=== PATIENT | male | born 1980 | race Two or more races ===

== ENCOUNTER 2018-12-24 15:50 | Inpatient (IN) | payer SELFPAY ==
[~2018-12-24] VITALS: Ht 165.1 cm; Wt 65.8 kg
--- NOTE | 2018-12-24 17:04 | PHYS DOC ---
Past Medical History Past Medical History: TB (JIA DALTON APRN) Past Surgical History: No Surgical History (JIA DALTON APRN) Alcohol Use: Heavy Drug Use: None (JIA DALTON APRN) Adult General Chief Complaint Chief Complaint: COUGH HPI HPI On pt's arrival to Rm 19 from triage he was placed on TB precautions. 38-year-old male presents to ER via POV with his brother for concerns of nonproductive cough and weight loss. Pt speaks minimal Sammarinese so his brother is translating- he speaks mainly [place]ian. Per brother patient had been heavy alcohol drinker however when he started working 1-1/2 months ago he did not have the financial means for alcohol. Patient has been sober for 15 days and his brother has noticed a significant weight loss of approximately 15-20 pounds in the past month. Patient is denying any pain or shortness of air. Patient has had nonproductive cough denying any blood or colored phlegm. Pt's brother reports pt had +TB test when he was in [place] 3[place]4 yrs ago and had done 1 wk of tx but didn't finish the tx. Pt's brother denies any recent travel. (JIA DALTON APRN) Review of Systems Review of Systems Constitutional: Denies fever or chills. Reports generalized fatigue/weakness- pt's brother denies lethargy/confusion/change in MS Eyes: Denies change in visual acuity, redness, or eye pain [] HENT: Denies nasal congestion or sore throat [] Respiratory: Denies shortness of breath. Reports intermittent dry cough- denies bloody/colored phlegm Cardiovascular: Denies CP GI: Denies abdominal pain, nausea, vomiting, bloody stools or diarrhea [] : Denies dysuria or hematuria [] Musculoskeletal: Denies back pain or joint pain [] Integument: Denies rash or skin lesions [] Neurologic: Denies headache, focal weakness or sensory changes [] Endocrine: Denies polyuria or polydipsia [] Pt's brother reports pt had been heavy drinker of beer until 15 days ago- he reports pt had tremors several days after he stopped drinking. He reports since pt stopped drinking he has been laying around sleeping more. He denies lethargy/confusion/falls. He reports pt hasn't been eating/drinking much. He denies pt w/vomiting or diarrhea. He reports pt has had weight loss over past couple of wks. He reports pt had shakes/tremors- had said "seizure like" shakes denying any change in LOC/mental status during episodes. All other systems were reviewed and found to be within normal limits, except as documented in this note. (REFFITT,JIA Carter APRN) Current Medications Current Medications Current Medications Medications (Trade) Dose Ordered Sig/Carlos Start Time Stop Time Status Last Admin Dose Admin Ceftriaxone Sodium (Rocephin) 1 gm 1X ONCE 12/24/18 19:45 12/24/18 19:46 DC 12/24/18 20:17 1 GM Doxycycline Hyclate 100 mg/ Dextrose 100 ml @ 50 mls/hr 1X ONCE 12/24/18 19:45 12/24/18 21:44 DC 12/24/18 20:18 50 MLS/HR Magnesium Sulfate 50 ml @ 25 mls/hr 1X ONCE 12/24/18 19:00 12/24/18 20:59 DC 12/24/18 19:36 25 MLS/HR Sodium Chloride 1,000 ml @ 100 mls/hr 1X ONCE 12/24/18 19:45 12/25/18 05:44 DC 12/24/18 20:17 100 MLS/HR (YUMIKO CHEEK MD) Allergies Allergies Allergies Coded Allergies Type Severity Reaction Last Updated Verified No Known Drug Allergies 12/24/18 No (YUMIKO CHEEK MD) Physical Exam Physical Exam Constitutional: Well developed, well nourished, no acute distress, non-toxic appearance. Fatigued appearance HENT: Normocephalic, atraumatic, mucous membranes pink/dry, no oral exudates, nose normal. [] Eyes: PERRLA, no nystagmus, conjunctiva normal, no discharge. 4 sutures rt eye lid- pt reports from laceration in 2017 and that 2 other sutures had fallen out. No swelling/erythema/ecchymosis at site- lac site is well healed. Sutures were removed by this provider easily w/out bleeding at suture sites. Neck: Normal range of motion, no tenderness/nuchal rigidity, supple, no stridor. [] Cardiovascular: Heart rate regular rhythm, no murmur [] Lungs & Thorax: Bilateral breath sounds clear to auscultation- resp. equal/nonlabored. No cough during exam Abdomen: Bowel sounds normal, soft, no tenderness, no masses, no pulsatile masses. [] Skin: Warm, dry, no erythema, no rash. [] Back: No tenderness, no CVA tenderness. [] Extremities: No tenderness, no cyanosis, no clubbing, ROM intact, no edema. [] Neurologic: Alert and oriented X 3, normal motor function, normal sensory function, no focal deficits noted. [] Psychologic: Affect normal, judgement normal, mood normal. [] (REFFITT,JIA Carter APRN) Current Patient Data Vital Signs Vital Signs Date Time Temp Pulse Resp B/P (MAP) Pulse Ox O2 Delivery O2 Flow Rate FiO2 12/24/18 19:39 86 132/87 (102) 99 Room Air 12/24/18 16:15 97.4 17 97.4 (YUMIKO CHEEK MD) Lab Values Laboratory Tests Test 12/24/18 16:15 12/24/18 18:07 White Blood Count 7.0 x10^3/uL (4.0-11.0) Red Blood Count 4.16 x10^6/uL (4.30-5.70) L Hemoglobin 12.9 g/dL (13.0-17.5) L Hematocrit 37.0 % (39.0-53.0) L Mean Corpuscular Volume 89 fL (79-100) Mean Corpuscular Hemoglobin 31 pg (25-35) Mean Corpuscular Hemoglobin Concent 35 g/dL (31-37) Red Cell Distribution Width 18.5 % (11.5-14.5) H Platelet Count 317 x10^3/uL (140-400) Neutrophils (%) (Auto) 84 % (31-73) H Lymphocytes (%) (Auto) 6 % (24-48) L Monocytes (%) (Auto) 9 % (0-9) Eosinophils (%) (Auto) 0 % (0-3) Basophils (%) (Auto) 1 % (0-3) Neutrophils # (Auto) 5.9 x10^3uL (1.8-7.7) Lymphocytes # (Auto) 0.4 x10^3/uL (1.0-4.8) L Monocytes # (Auto) 0.6 x10^3/uL (0.0-1.1) Eosinophils # (Auto) 0.0 x10^3/uL (0.0-0.7) Basophils # (Auto) 0.0 x10^3/uL (0.0-0.2) Sodium Level 124 mmol/L (136-145) L Potassium Level 3.5 mmol/L (3.5-5.1) Chloride Level 91 mmol/L (98-107) L Carbon Dioxide Level 23 mmol/L (21-32) Anion Gap 10 (6-14) Blood Urea Nitrogen 7 mg/dL (8-26) L Creatinine 0.8 mg/dL (0.7-1.3) Estimated GFR (Cockcroft-Gault) 108.8 BUN/Creatinine Ratio 9 (6-20) Glucose Level 111 mg/dL (70-99) H Calcium Level 8.7 mg/dL (8.5-10.1) Magnesium Level 1.4 mg/dL (1.8-2.4) L Total Bilirubin 1.8 mg/dL (0.2-1.0) H Aspartate Amino Transferase (AST) 84 U/L (15-37) H Alanine Aminotransferase (ALT) 51 U/L (16-63) Alkaline Phosphatase 280 U/L (46-116) H Creatine Kinase 26 U/L (39-308) L Creatine Kinase MB (Mass) < 0.5 ng/mL (0.0-3.6) Creatine Kinase MB Relative Index % (0-4) Troponin I Quantitative < 0.017 ng/mL (0.000-0.055) Total Protein 9.5 g/dL (6.4-8.2) H Albumin 2.1 g/dL (3.4-5.0) L Albumin/Globulin Ratio 0.3 (1.0-1.7) L Ethyl Alcohol Level < 10 mg/dL (0-10) Urine Color Yellow Urine Clarity Clear Urine pH 7.0 Urine Specific Sisters 1.010 Urine Protein Negative mg/dL (NEG-TRACE) Urine Glucose (UA) Negative mg/dL (NEG) Urine Ketones (Stick) Negative mg/dL (NEG) Urine Blood Negative (NEG) Urine Nitrite Negative (NEG) Urine Bilirubin Negative (NEG) Urine Urobilinogen Dipstick 1.0 mg/dL (0.2 mg/dL) Urine Leukocyte Esterase Negative (NEG) Urine RBC 0 /HPF (0-2) Urine WBC 1-4 /HPF (0-4) Urine Squamous Epithelial Cells Occ /LPF Urine Bacteria 0 /HPF (0-FEW) Urine Opiates Screen Neg (NEG) Urine Methadone Screen Neg (NEG) Urine Barbiturates Neg (NEG) Urine Phencyclidine Screen Neg (NEG) Urine Amphetamine/Methamphetamine Neg (NEG) Urine Benzodiazepines Screen Neg (NEG) Urine Cocaine Screen Neg (NEG) Urine Cannabinoids Screen Neg (NEG) Urine Ethyl Alcohol Neg (NEG) Laboratory Tests 12/24/18 16:15 Laboratory Tests 12/24/18 16:15 (YUMIKO CHEEK MD) Lab Values Laboratory Tests Test 12/24/18 16:15 12/24/18 18:07 White Blood Count 7.0 x10^3/uL (4.0-11.0) Red Blood Count 4.16 x10^6/uL (4.30-5.70) L Hemoglobin 12.9 g/dL (13.0-17.5) L Hematocrit 37.0 % (39.0-53.0) L Mean Corpuscular Volume 89 fL (79-100) Mean Corpuscular Hemoglobin 31 pg (25-35) Mean Corpuscular Hemoglobin Concent 35 g/dL (31-37) Red Cell Distribution Width 18.5 % (11.5-14.5) H Platelet Count 317 x10^3/uL (140-400) Neutrophils (%) (Auto) 84 % (31-73) H Lymphocytes (%) (Auto) 6 % (24-48) L Monocytes (%) (Auto) 9 % (0-9) Eosinophils (%) (Auto) 0 % (0-3) Basophils (%) (Auto) 1 % (0-3) Neutrophils # (Auto) 5.9 x10^3uL (1.8-7.7) Lymphocytes # (Auto) 0.4 x10^3/uL (1.0-4.8) L Monocytes # (Auto) 0.6 x10^3/uL (0.0-1.1) Eosinophils # (Auto) 0.0 x10^3/uL (0.0-0.7) Basophils # (Auto) 0.0 x10^3/uL (0.0-0.2) Sodium Level 124 mmol/L (136-145) L Potassium Level 3.5 mmol/L (3.5-5.1) Chloride Level 91 mmol/L (98-107) L Carbon Dioxide Level 23 mmol/L (21-32) Anion Gap 10 (6-14) Blood Urea Nitrogen 7 mg/dL (8-26) L Creatinine 0.8 mg/dL (0.7-1.3) Estimated GFR (Cockcroft-Gault) 108.8 BUN/Creatinine Ratio 9 (6-20) Glucose Level 111 mg/dL (70-99) H Calcium Level 8.7 mg/dL (8.5-10.1) Magnesium Level 1.4 mg/dL (1.8-2.4) L Total Bilirubin 1.8 mg/dL (0.2-1.0) H Aspartate Amino Transferase (AST) 84 U/L (15-37) H Alanine Aminotransferase (ALT) 51 U/L (16-63) Alkaline Phosphatase 280 U/L (46-116) H Creatine Kinase 26 U/L (39-308) L Creatine Kinase MB (Mass) < 0.5 ng/mL (0.0-3.6) Creatine Kinase MB Relative Index % (0-4) Troponin I Quantitative < 0.017 ng/mL (0.000-0.055) Total Protein 9.5 g/dL (6.4-8.2) H Albumin 2.1 g/dL (3.4-5.0) L Albumin/Globulin Ratio 0.3 (1.0-1.7) L Ethyl Alcohol Level < 10 mg/dL (0-10) Urine Color Yellow Urine Clarity Clear Urine pH 7.0 Urine Specific Sisters 1.010 Urine Protein Negative mg/dL (NEG-TRACE) Urine Glucose (UA) Negative mg/dL (NEG) Urine Ketones (Stick) Negative mg/dL (NEG) Urine Blood Negative (NEG) Urine Nitrite Negative (NEG) Urine Bilirubin Negative (NEG) Urine Urobilinogen Dipstick 1.0 mg/dL (0.2 mg/dL) Urine Leukocyte Esterase Negative (NEG) Urine RBC 0 /HPF (0-2) Urine WBC 1-4 /HPF (0-4) Urine Squamous Epithelial Cells Occ /LPF Urine Bacteria 0 /HPF (0-FEW) Urine Opiates Screen Neg (NEG) Urine Methadone Screen Neg (NEG) Urine Barbiturates Neg (NEG) Urine Phencyclidine Screen Neg (NEG) Urine Amphetamine/Methamphetamine Neg (NEG) Urine Benzodiazepines Screen Neg (NEG) Urine Cocaine Screen Neg (NEG) Urine Cannabinoids Screen Neg (NEG) Urine Ethyl Alcohol Neg (NEG) Laboratory Tests 12/24/18 16:15 Laboratory Tests 12/24/18 16:15 (JIA DALTON APRN) EKG EKG EKG obtained 12/24/18 at 1729 Interpreted by ER physician Sinus rhythm Nonspec. ST/T abnorm. Rate 87 (JIA DALTON APRN) Radiology/Procedures Radiology/Procedures PROCEDURE: CHEST PA & LATERAL EXAM: Chest, 2 views. HISTORY: Cough. COMPARISON: None. FINDINGS: 2 views the chest are obtained. There is left upper lobe opacity likely due to partially consolidated infiltrate. There are additional more nodular opacities throughout both lungs which may be due to nodular infiltrate. There is no pleural effusion or pneumothorax. The heart is prominent in size. IMPRESSION: 1. Suspected partially consolidated left upper lobe infiltrate with superimposed scattered bilateral nodular infiltrate. The possibility of pulmonary neoplasm is not excluded. Short-term radiographic or CT follow-up is indicated. 2. Prominent cardiac silhouette. Electronically signed by: Elida Nunn MD (12/24/2018 5:56 PM) [facility] DICTATED and SIGNED BY: ELIDA NUNN MD DATE: 12/24/18 1751 (JIA DALTON APRN) Course & Med Decision Making Course & Med Decision Making Pertinent Labs and Imaging studies reviewed. (See chart for details) Translation phone used to communicate with patient as his brother had left. Discussed test results, plans for antibiotics, and admit plan. Patient reports he is feeling better following IV fluids. Patient had one point for magnesium on labs so IV magnesium 2 g had been ordered. Patient is denying any chest pain or shortness of air. Patient has had no cough during discussion of test results and admit plan. Pt's case was discussed with Dr. Cheek- with pt's chest xray report of "Suspected partially consolidated left upper lobe infiltrate with superimposed scattered bilateral nodular infiltrate" will start pt on IV Rocephin and Doxycycline. Pt had been placed on TB precautions at time of arrival to 19 and will remain on during admission until further r/o TB. 1946: Spoke with Dr. Zheng, hospitalist and discussed pt's case/admit plans and TB concerns. Pt was afebrile with NL WBCs without bands on differential- BP stable while in the ER- HR improved from 104 to 90s following IV flds. Therefore pt not meeting sepsis criteria with HR being the 1 criteria he flagged for. Antibiotics were started prior to blood cxs being obtained. (JIA DALTON APRN) Course & Med Decision Making Staff Physician Addendum: I was working in the ER during the course of this patient's visit. I was available for consultation as needed, but I was not directly involved in the care of this patient. (YUMIKO CHEEK MD) Dragon Disclaimer Dragon Disclaimer This electronic medical record was generated, in whole or in part, using a voice recognition dictation system. (JIA DALTON APRN) Departure Departure Impression: Primary Impression: Concern about pulmonary tuberculosis without diagnosis Additional Impressions: Hypomagnesemia Cough Hyponatremia Disposition: ADMITTED INPATIENT (Dr. Zheng, hospitalist) Condition: STABLE Problem Qualifiers JIA DALTON APRN Dec 24, 2018 17:04 YUMIKO CHEEK MD Dec 30, 2018 07:34
[2018-12-24 17:08] LABS: BASO % 1 % (0-3); EOS % 0 % (0-3); HEMOGLOBIN 12.9 g/dL (13.0-17.5); LYMPH # 0.4 x10^3/uL (1.0-4.8); LYMPH % 6 % (24-48); MEAN CORPUSCULAR HEMOGLOBIN 31 pg (25-35); MEAN CORPUSCULAR HGB CONC 35 g/dL (31-37); MEAN CORPUSCULAR VOLUME 89 fL (79-100); MONO # 0.6 x10^3/uL (0.0-1.1); MONO % 9 % (0-9); NEUT # 5.9 x10^3uL (1.8-7.7); NEUT % 84 % (31-73); PLATELET COUNT 317 x10^3/uL (140-400); RED BLOOD COUNT 4.16 x10^6/uL (4.30-5.70); RED CELL DISTRIBUTION WIDTH 18.5 % (11.5-14.5)
[2018-12-24] MEDS ORDERED: IV NORMAL SALINE 1000ML BAG 1,000 ML IV ONE ×2 (17:15→19:45)
[2018-12-24 17:24] LABS: CALCIUM 8.7 mg/dL (8.5-10.1); CREATININE 0.8 mg/dL (0.7-1.3); GFR 108.8; POTASSIUM 3.5 mmol/L (3.5-5.1)
[2018-12-24 17:37] LABS: ALBUMIN 2.1 g/dL (3.4-5.0); ALBUMIN/GLOBULIN RATIO 0.3 (1.0-1.7); MAGNESIUM 1.4 mg/dL (1.8-2.4); TOTAL BILIRUBIN 1.8 mg/dL (0.2-1.0); TOTAL PROTEIN 9.5 g/dL (6.4-8.2)
[2018-12-24 17:56] LABS: CREATINE KINASE 26 U/L (39-308)
--- NOTE | 2018-12-24 17:59 | RAD ---
EXAM: Chest, 2 views. HISTORY: Cough. COMPARISON: None. FINDINGS: 2 views the chest are obtained. There is left upper lobe opacity likely due to partially consolidated infiltrate. There are additional more nodular opacities throughout both lungs which may be due to nodular infiltrate. There is no pleural effusion or pneumothorax. The heart is prominent in size. IMPRESSION: 1. Suspected partially consolidated left upper lobe infiltrate with superimposed scattered bilateral nodular infiltrate. The possibility of pulmonary neoplasm is not excluded. Short-term radiographic or CT follow-up is indicated. 2. Prominent cardiac silhouette. Electronically signed by: Elida Olmstead MD (12/24/2018 5:56 PM) [facility]
[2018-12-24 18:16] LABS: BILIRUBIN,URINE NEGATIVE (NEG); CLARITY,URINE CLEAR; COLOR,URINE YELLOW; NITRITE,URINE NEGATIVE (NEG); PROTEIN,URINE NEGATIVE (NEG-TRACE)
[2018-12-24 18:21] LABS: AMPHETAMINE/METHAMPHETAMINE NEG (NEG); BARBITURATES NEG (NEG); BENZODIAZEPINES NEG (NEG); CANNABINOIDS NEG (NEG); COCAINE NEG (NEG); METHADONE NEG (NEG); OPIATES NEG (NEG); PHENCYCLIDINE NEG (NEG)
[2018-12-24 18:28] LABS: BACTERIA,URINE 0 /HPF (0-FEW); RBC,URINE 0 /HPF (0-2); SQUAMOUS EPITHELIAL CELL,UR OCC /LPF
[2018-12-24] MEDS ORDERED: MAGNESIUM SULFATE 2GM 50 ML IV ONE (19:00)
[2018-12-24] MEDS ORDERED: DOXYCYCLINE HYCLATE 100 MG in IV DEXTROSE 5% 100ML 100 ML IV ONE (19:45)
[2018-12-24] MEDS ORDERED: cefTRIAXone IV Push 1 GM VIAL. IVP ONE (19:45)
[2018-12-24 23:03] VITALS: BP 121/79
[2018-12-25 03:27] VITALS: BP 115/78
--- NOTE | 2018-12-25 04:09 | NUR ---
Patient arrived to room 200 via wheelchair at approx 2030. He is A/O x4 speaks a little [place] and [place]i is his primary language. Access Services Librarian line is used for the admission. No complaints of pain, steady gait, VSS, and running IV NSL so his call light is used for assistance with IV pole during bathroom visits. HEPA filtration placed in the room vestibule and airborne precautions instated for suspicion of active TB. See assessments.
--- NOTE | 2018-12-25 05:59 | EKG ---
[facility] [address] [place] [address] Test Date: 2018-12-24 Test Time: 17:29:56 Pat Name: CARLA PARADA Department: Room: Gender: Documentation Nurse: : 1980 Requested By: JIA DALTON Order Number: [id number] Reading MD: Measurements Intervals [place] Rate: 87 P: 59 LA: 156 QRS: 63 QRSD: 98 T: 51 QT: 380 QTc: 463 Interpretive Statements SINUS RHYTHM NON SPECIFIC ST-T ABNORMALITY (ELEVATION) OTHERWISE NORMAL ECG No previous ECG available for comparison
[2018-12-25 06:58] LABS: BASO % 1 % (0-3); EOS % 0 % (0-3); HEMATOCRIT 34.6 % (39.0-53.0); HEMOGLOBIN 11.7 g/dL (13.0-17.5); LYMPH # 0.4 x10^3/uL (1.0-4.8); LYMPH % 8 % (24-48); MEAN CORPUSCULAR HEMOGLOBIN 31 pg (25-35); MEAN CORPUSCULAR HGB CONC 34 g/dL (31-37); MEAN CORPUSCULAR VOLUME 90 fL (79-100); MONO # 0.5 x10^3/uL (0.0-1.1); MONO % 10 % (0-9); NEUT % 81 % (31-73); PLATELET COUNT 241 x10^3/uL (140-400); RED BLOOD COUNT 3.83 x10^6/uL (4.30-5.70); RED CELL DISTRIBUTION WIDTH 18.5 % (11.5-14.5); WHITE BLOOD COUNT 4.9 x10^3/uL (4.0-11.0)
[2018-12-25 07:00] VITALS: BP 120/79
[2018-12-25 07:13] LABS: ALBUMIN 1.6 g/dL (3.4-5.0); ALBUMIN/GLOBULIN RATIO 0.3 (1.0-1.7); CREATININE 0.6 mg/dL (0.7-1.3); GFR 151.6; POTASSIUM 3.8 mmol/L (3.5-5.1); TOTAL BILIRUBIN 1.1 mg/dL (0.2-1.0); TOTAL PROTEIN 7.8 g/dL (6.4-8.2)
--- NOTE | 2018-12-25 07:51 | PDOC1 ---
History and Physical Date of Admission Date of Admission DATE: 12/25/18 TIME: 07:51 Identification/Chief Complaint Chief Complaint Cough Source Source: Caregiver, Chart review, Patient History of Present Illness History of Present Illness Mr Meagan is a 38 yo M w/ PMHx TB who presents to ER via with his brother for concerns of nonproductive cough and weight loss. Pt speaks minimal [place] so his brother was translating- he speaks mainly [place], but also speaks this poorly per regulator inspector on [employer], [id number]. Per brother patient had been heavy alcohol drinker over 3 12-20 oz beers per day, however when he stopped work due to an injury, he states a fall, he has been drinking a little less. Patient has had nonproductive cough denying any blood or colored phlegm. He notes that he has lost 25 pounds in the past month and has had a rough, hacking cough for the last month as well. Pt's brother reported to the ED that pt had +TB test when he was in [place] 4 yrs ago and had started treatment, but did not finish. When he first moved back to the [place] he initially moved to [facility] 3 years ago where he lived to apparently take care of his ailing mother, that is where he began his green card application. He states at the time he had hep A/B vaccinations which he completed on moving to [place] 3 years ago. Denies any recent travel, has no pets, is single. States he is not sexually active, but he refuses to answer his sexual preference. He reports pt hasn't been eating/drinking much. He denies pt w/vomiting or diarrhea. Apparently brother told ED staff patient had "seizure like" shakes when he decreased his drinking. In ED noted with hypomagnesemia, 1.4, hyponatremia 124, hypokalemia 3.5 and bilirubin of 1.8 with mildly elevated AST as well as mild anemia. No leukocytosis. No fever until this morning 100.5F, very tachycardic with increased RR. Admitted to negative pressure room on TB precautions. Past Medical History Cardiovascular: No pertinent hx Pulmonary: No pertinent hx GI: No pertinent hx Heme/Onc: No pertinent hx Hepatobiliary: No pertinent hx Psych: No pertinent hx Rheumatologic: No pertinent hx Infectious disease: Other (TB) ENT: No pertinent hx Renal/: No pertinent hx Endocrine: No pertinent hx Dermatology: No pertinent hx Past Surgical History Past Surgical History: No pertinent history Family History Family History: Family History Unknown Social History Smoke: No (SMOKELESS TOBACCO) ALCOHOL: heavy Drugs: None Current Problem List Problem List Problems Medical Problems: (1) Hyponatremia Status: Acute Current Medications Current Medications Current Medications Sodium Chloride 1,000 ml @ 1,000 mls/hr 1X ONCE IV Last administered on 12/24/18at 17:29; Start 12/24/18 at 17:15; Stop 12/24/18 at 18:14; Status DC Magnesium Sulfate 50 ml @ 25 mls/hr 1X ONCE IV Last administered on 12/24/18at 19:36; Start 12/24/18 at 19:00; Stop 12/24/18 at 20:59; Status DC Ceftriaxone Sodium (Rocephin) 1 gm 1X ONCE IVP Last administered on 12/24/18at 20:17; Start 12/24/18 at 19:45; Stop 12/24/18 at 19:46; Status DC Doxycycline Hyclate 100 mg/ Dextrose 100 ml @ 50 mls/hr 1X ONCE IV Last administered on 12/24/18at 20:18; Start 12/24/18 at 19:45; Stop 12/24/18 at 21:44; Status DC Sodium Chloride 1,000 ml @ 100 mls/hr 1X ONCE IV Last administered on 12/24/18at 20:17; Start 12/24/18 at 19:45; Stop 12/25/18 at 05:44; Status DC Active Scripts Active Reported No Known Medications Prior To Admisstion (Info) Each 1 Each 1X Allergies Allergies: Coded Allergies: No Known Drug Allergies (Unverified , 12/24/18) ROS General: YES: Chills, Night Sweats, Fatigue, Malaise, Appetite; No: Other PSYCHOLOGICAL ROS: YES: Anxiety; No: Behavioral Disorder, Concentration difficultie, Decreased libido, Depression, Disorientation, Hallucinations, Hostility, Irritablity, Memory difficulties, Mood Swings, Obsessive thoughts, Physical abuse, Sexual abuse, Sleep disturbances, Suicidal ideation, Other Eyes: No Blurry vision, No Decreased vision, No Double vision, No Dry eyes, No Excessive tearing, No Eye Pain, No Itchy Eyes, No Loss of vision, No Photophobia, No Scotomata, No Uses contacts, No Uses glasses, No Other HEENT: No: Heacaches, Visual Changes, Hearing change, Nasal congestion, Nasal discharge, Oral lesions, Sinus pain, Sore Throat, Epistaxis, Sneezing, Snoring, Tinnitus, Vertigo, Vocal changes, Other ALLERGY AND IMMUNOLOGY: No: Hives, Insect Bite Sensitivity, Itchy/Watery Eyes, Nasal Congestion, Post Nasal Drip, Seasonal Allergies, Other Hematological and Lymphatic: No: Bleeding Problems, Blood Clots, Blood Transfusions, Brusing, Night Sweats, Pallor, Swollen Lymph Nodes, Other ENDOCRINE: No: Breast Changes, Galactorrhea, Hair Pattern Changes, Hot Flashes, Malaise/lethargy, Mood Swings, Palpitations, Polydipsia/polyuria, Skin Changes, Temperature Intolerance, Unexpected Weight Changes, Other Breast: No New/Changing Breast Lumps, No Nipple changes, No Nipple discharge, No Other Respiratory: YES: Cough, Shortness of breath, SOB with excertion, Tachypnea, Wheezing; No: Hemoptysis, Orthopnea, Pleuritic Pain, Sputum Changes, Stridor, Other Cardiovascular: No Chest Pain, No Palpitations, No Orthopnea, No Paroxysmal Noc. Dyspnea, No Edema, No Lt Headedness, No Other Gastrointestinal: Yes Nausea; No Vomiting, No Abdominal Pain, No Diarrhea, No Constipation, No Melena, No Hematochezia, No Other Genitourinary: No Dysuria, No Frequency, No Incontinence, No Hematuria, No Retention, No Discharge, No Urgency, No Pain, No Flank Pain, No Other, No , No , No , No , No , No , No Musculoskeletal: No Gait Disturbance, No Joint Pain, No Joint Stiffness, No Joint Swelling, No Muscle Pain, No Muscular Weakness, No Pain In:, No Swelling In:, No Other Neurological: No Behavorial Changes, No Bowel/Bladder ControlChng, No Confusion, No Dizziness, No Gait Disturbance, No Headaches, No Impaired Coord/balance, No Memory Loss, No Numbness/Tingling, No Seizures, No Speech Problems, No Tremors, No Visual Changes, No Weakness, No Other Skin: No Dry Skin, No Eczema, No Hair Changes, No Lumps, No Mole Changes, No Mottling, No Nail Changes, No Pruritus, No Rash, No Skin Lesion Changes, No Other, No Acne Physical Exam General: Alert, Oriented X3, Cooperative, No acute distress HEENT: Atraumatic, PERRLA, EOMI, Mucous membr. moist/pink, Other (Prominent maxillary ridge, cachectic appearing) Lungs: Other (Rhonchi on right) Heart: S1S2, other (TACHY) Abdomen: Normal bowel sounds, Soft, No tenderness, No hepatosplenomegaly, No masses Extremities: No clubbing, No cyanosis, No edema, Normal pulses, No tenderness/swelling Skin: No rashes, No breakdown, No significant lesion Neuro: Normal gait, Normal speech, Strength at 5/5 X4 ext, Normal tone, Sensation intact, Cranial nerves 3-12 NL, Reflexes 2+ Psych/Mental Status: Mental status NL, Mood NL Vitals Vitals Vital Signs Date Time Temp Pulse Resp B/P (MAP) Pulse Ox O2 Delivery O2 Flow Rate FiO2 12/25/18 03:27 99.0 92 18 115/78 (90) 92 Room Air 99.0 Labs Labs Laboratory Tests Test 12/24/18 16:15 12/24/18 18:07 12/25/18 06:00 White Blood Count 7.0 x10^3/uL (4.0-11.0) 4.9 x10^3/uL (4.0-11.0) Red Blood Count 4.16 x10^6/uL (4.30-5.70) 3.83 x10^6/uL (4.30-5.70) Hemoglobin 12.9 g/dL (13.0-17.5) 11.7 g/dL (13.0-17.5) Hematocrit 37.0 % (39.0-53.0) 34.6 % (39.0-53.0) Mean Corpuscular Volume 89 fL (79-100) 90 fL (79-100) Mean Corpuscular Hemoglobin 31 pg (25-35) 31 pg (25-35) Mean Corpuscular Hemoglobin Concent 35 g/dL (31-37) 34 g/dL (31-37) Red Cell Distribution Width 18.5 % (11.5-14.5) 18.5 % (11.5-14.5) Platelet Count 317 x10^3/uL (140-400) 241 x10^3/uL (140-400) Neutrophils (%) (Auto) 84 % (31-73) 81 % (31-73) Lymphocytes (%) (Auto) 6 % (24-48) 8 % (24-48) Monocytes (%) (Auto) 9 % (0-9) 10 % (0-9) Eosinophils (%) (Auto) 0 % (0-3) 0 % (0-3) Basophils (%) (Auto) 1 % (0-3) 1 % (0-3) Neutrophils # (Auto) 5.9 x10^3uL (1.8-7.7) 4.0 x10^3uL (1.8-7.7) Lymphocytes # (Auto) 0.4 x10^3/uL (1.0-4.8) 0.4 x10^3/uL (1.0-4.8) Monocytes # (Auto) 0.6 x10^3/uL (0.0-1.1) 0.5 x10^3/uL (0.0-1.1) Eosinophils # (Auto) 0.0 x10^3/uL (0.0-0.7) 0.0 x10^3/uL (0.0-0.7) Basophils # (Auto) 0.0 x10^3/uL (0.0-0.2) 0.0 x10^3/uL (0.0-0.2) Sodium Level 124 mmol/L (136-145) 128 mmol/L (136-145) Potassium Level 3.5 mmol/L (3.5-5.1) 3.8 mmol/L (3.5-5.1) Chloride Level 91 mmol/L (98-107) 96 mmol/L (98-107) Carbon Dioxide Level 23 mmol/L (21-32) 24 mmol/L (21-32) Anion Gap 10 (6-14) 8 (6-14) Blood Urea Nitrogen 7 mg/dL (8-26) 3 mg/dL (8-26) Creatinine 0.8 mg/dL (0.7-1.3) 0.6 mg/dL (0.7-1.3) Estimated GFR (Cockcroft-Gault) 108.8 151.6 BUN/Creatinine Ratio 9 (6-20) 5 (6-20) Glucose Level 111 mg/dL (70-99) 109 mg/dL (70-99) Calcium Level 8.7 mg/dL (8.5-10.1) 8.0 mg/dL (8.5-10.1) Magnesium Level 1.4 mg/dL (1.8-2.4) Total Bilirubin 1.8 mg/dL (0.2-1.0) 1.1 mg/dL (0.2-1.0) Aspartate Amino Transf (AST/SGOT) 84 U/L (15-37) 62 U/L (15-37) Alanine Aminotransferase (ALT/SGPT) 51 U/L (16-63) 38 U/L (16-63) Alkaline Phosphatase 280 U/L (46-116) 232 U/L (46-116) Creatine Kinase 26 U/L (39-308) Creatine Kinase MB (Mass) < 0.5 ng/mL (0.0-3.6) Creatine Kinase MB Relative Index % (0-4) Troponin I Quantitative < 0.017 ng/mL (0.000-0.055) Total Protein 9.5 g/dL (6.4-8.2) 7.8 g/dL (6.4-8.2) Albumin 2.1 g/dL (3.4-5.0) 1.6 g/dL (3.4-5.0) Albumin/Globulin Ratio 0.3 (1.0-1.7) 0.3 (1.0-1.7) Ethyl Alcohol Level < 10 mg/dL (0-10) Urine Color Yellow Urine Clarity Clear Urine pH 7.0 Urine Specific [place] 1.010 Urine Protein Negative mg/dL (NEG-TRACE) Urine Glucose (UA) Negative mg/dL (NEG) Urine Ketones (Stick) Negative mg/dL (NEG) Urine Blood Negative (NEG) Urine Nitrite Negative (NEG) Urine Bilirubin Negative (NEG) Urine Urobilinogen Dipstick 1.0 mg/dL (0.2 mg/dL) Urine Leukocyte Esterase Negative (NEG) Urine RBC 0 /HPF (0-2) Urine WBC 1-4 /HPF (0-4) Urine Squamous Epithelial Cells Occ /LPF Urine Bacteria 0 /HPF (0-FEW) Urine Opiates Screen Neg (NEG) Urine Methadone Screen Neg (NEG) Urine Barbiturates Neg (NEG) Urine Phencyclidine Screen Neg (NEG) Urine Amphetamine/Methamphetamine Neg (NEG) Urine Benzodiazepines Screen Neg (NEG) Urine Cocaine Screen Neg (NEG) Urine Cannabinoids Screen Neg (NEG) Urine Ethyl Alcohol Neg (NEG) Laboratory Tests Test 12/24/18 16:15 12/24/18 18:07 12/25/18 06:00 White Blood Count 7.0 x10^3/uL (4.0-11.0) 4.9 x10^3/uL (4.0-11.0) Red Blood Count 4.16 x10^6/uL (4.30-5.70) 3.83 x10^6/uL (4.30-5.70) Hemoglobin 12.9 g/dL (13.0-17.5) 11.7 g/dL (13.0-17.5) Hematocrit 37.0 % (39.0-53.0) 34.6 % (39.0-53.0) Mean Corpuscular Volume 89 fL (79-100) 90 fL (79-100) Mean Corpuscular Hemoglobin 31 pg (25-35) 31 pg (25-35) Mean Corpuscular Hemoglobin Concent 35 g/dL (31-37) 34 g/dL (31-37) Red Cell Distribution Width 18.5 % (11.5-14.5) 18.5 % (11.5-14.5) Platelet Count 317 x10^3/uL (140-400) 241 x10^3/uL (140-400) Neutrophils (%) (Auto) 84 % (31-73) 81 % (31-73) Lymphocytes (%) (Auto) 6 % (24-48) 8 % (24-48) Monocytes (%) (Auto) 9 % (0-9) 10 % (0-9) Eosinophils (%) (Auto) 0 % (0-3) 0 % (0-3) Basophils (%) (Auto) 1 % (0-3) 1 % (0-3) Neutrophils # (Auto) 5.9 x10^3uL (1.8-7.7) 4.0 x10^3uL (1.8-7.7) Lymphocytes # (Auto) 0.4 x10^3/uL (1.0-4.8) 0.4 x10^3/uL (1.0-4.8) Monocytes # (Auto) 0.6 x10^3/uL (0.0-1.1) 0.5 x10^3/uL (0.0-1.1) Eosinophils # (Auto) 0.0 x10^3/uL (0.0-0.7) 0.0 x10^3/uL (0.0-0.7) Basophils # (Auto) 0.0 x10^3/uL (0.0-0.2) 0.0 x10^3/uL (0.0-0.2) Sodium Level 124 mmol/L (136-145) 128 mmol/L (136-145) Potassium Level 3.5 mmol/L (3.5-5.1) 3.8 mmol/L (3.5-5.1) Chloride Level 91 mmol/L (98-107) 96 mmol/L (98-107) Carbon Dioxide Level 23 mmol/L (21-32) 24 mmol/L (21-32) Anion Gap 10 (6-14) 8 (6-14) Blood Urea Nitrogen 7 mg/dL (8-26) 3 mg/dL (8-26) Creatinine 0.8 mg/dL (0.7-1.3) 0.6 mg/dL (0.7-1.3) Estimated GFR (Cockcroft-Gault) 108.8 151.6 BUN/Creatinine Ratio 9 (6-20) 5 (6-20) Glucose Level 111 mg/dL (70-99) 109 mg/dL (70-99) Calcium Level 8.7 mg/dL (8.5-10.1) 8.0 mg/dL (8.5-10.1) Magnesium Level 1.4 mg/dL (1.8-2.4) Total Bilirubin 1.8 mg/dL (0.2-1.0) 1.1 mg/dL (0.2-1.0) Aspartate Amino Transf (AST/SGOT) 84 U/L (15-37) 62 U/L (15-37) Alanine Aminotransferase (ALT/SGPT) 51 U/L (16-63) 38 U/L (16-63) Alkaline Phosphatase 280 U/L (46-116) 232 U/L (46-116) Creatine Kinase 26 U/L (39-308) Creatine Kinase MB (Mass) < 0.5 ng/mL (0.0-3.6) Creatine Kinase MB Relative Index % (0-4) Troponin I Quantitative < 0.017 ng/mL (0.000-0.055) Total Protein 9.5 g/dL (6.4-8.2) 7.8 g/dL (6.4-8.2) Albumin 2.1 g/dL (3.4-5.0) 1.6 g/dL (3.4-5.0) Albumin/Globulin Ratio 0.3 (1.0-1.7) 0.3 (1.0-1.7) Ethyl Alcohol Level < 10 mg/dL (0-10) Urine Color Yellow Urine Clarity Clear Urine pH 7.0 Urine Specific [place] 1.010 Urine Protein Negative mg/dL (NEG-TRACE) Urine Glucose (UA) Negative mg/dL (NEG) Urine Ketones (Stick) Negative mg/dL (NEG) Urine Blood Negative (NEG) Urine Nitrite Negative (NEG) Urine Bilirubin Negative (NEG) Urine Urobilinogen Dipstick 1.0 mg/dL (0.2 mg/dL) Urine Leukocyte Esterase Negative (NEG) Urine RBC 0 /HPF (0-2) Urine WBC 1-4 /HPF (0-4) Urine Squamous Epithelial Cells Occ /LPF Urine Bacteria 0 /HPF (0-FEW) Urine Opiates Screen Neg (NEG) Urine Methadone Screen Neg (NEG) Urine Barbiturates Neg (NEG) Urine Phencyclidine Screen Neg (NEG) Urine Amphetamine/Methamphetamine Neg (NEG) Urine Benzodiazepines Screen Neg (NEG) Urine Cocaine Screen Neg (NEG) Urine Cannabinoids Screen Neg (NEG) Urine Ethyl Alcohol Neg (NEG) Images Images CXR - 1. Suspected partially consolidated left upper lobe infiltrate with superimposed scattered bilateral nodular infiltrate. The possibility of pulmonary neoplasm is not excluded. Short-term radiographic or CT follow-up is indicated. 2. Prominent cardiac silhouette. VTE Prophylaxis Ordered VTE Prophylaxis Devices: No VTE Pharmacological Prophylaxi: No Assessment/Plan Assessment/Plan A/P: RUL pneumonia - read as possibly concerning for neoplasm, with history this is high risk for TB. Consult pulm for bronchoscopy. Consult ID for antibiotics. Already given empiric antibiotics for sepsis by ED. Sepsis - secondary to pneumonia. Will monitor fever trend. ID on board. IVF given. Hypomagnesemia, 1.4 - replace 6 g total Hyponatremia 124 - likely hypovolemic, poor PO intake. IVF Hypokalemia 3.5 - replace Elevated bilirubin of 1.8 with mildly elevated AST - likely constipated with recent ETOH use, will trend Mild anemia - likely from current illness ETOH abuse - will place on CIWA, banana bag FEN - General diet PPX - lovenox after bronch FULL CODE Inpatient telemetry monitoring for sepsis secondary to RUL pneumonia, at least 2 midnights. KARLOS PALUMBO MD Dec 25, 2018 07:51
[2018-12-25] MEDS ORDERED: MAGNESIUM SULFATE 2GM 50 ML IV ONE ×2 (09:00→11:45)
[2018-12-25 11:00] VITALS: BP 110/72
--- NOTE | 2018-12-25 11:23 | PDOC ---
PULMONARY PROGRESS NOTES Vitals Vital Signs Date Time Temp Pulse Resp B/P (MAP) Pulse Ox O2 Delivery O2 Flow Rate FiO2 12/25/18 08:00 Room Air 12/25/18 07:00 100.5 89 18 120/79 (93) 96 100.5 Labs Laboratory Tests Test 12/24/18 16:15 12/24/18 18:07 12/25/18 06:00 White Blood Count 7.0 x10^3/uL (4.0-11.0) 4.9 x10^3/uL (4.0-11.0) Red Blood Count 4.16 x10^6/uL (4.30-5.70) 3.83 x10^6/uL (4.30-5.70) Hemoglobin 12.9 g/dL (13.0-17.5) 11.7 g/dL (13.0-17.5) Hematocrit 37.0 % (39.0-53.0) 34.6 % (39.0-53.0) Mean Corpuscular Volume 89 fL (79-100) 90 fL (79-100) Mean Corpuscular Hemoglobin 31 pg (25-35) 31 pg (25-35) Mean Corpuscular Hemoglobin Concent 35 g/dL (31-37) 34 g/dL (31-37) Red Cell Distribution Width 18.5 % (11.5-14.5) 18.5 % (11.5-14.5) Platelet Count 317 x10^3/uL (140-400) 241 x10^3/uL (140-400) Neutrophils (%) (Auto) 84 % (31-73) 81 % (31-73) Lymphocytes (%) (Auto) 6 % (24-48) 8 % (24-48) Monocytes (%) (Auto) 9 % (0-9) 10 % (0-9) Eosinophils (%) (Auto) 0 % (0-3) 0 % (0-3) Basophils (%) (Auto) 1 % (0-3) 1 % (0-3) Neutrophils # (Auto) 5.9 x10^3uL (1.8-7.7) 4.0 x10^3uL (1.8-7.7) Lymphocytes # (Auto) 0.4 x10^3/uL (1.0-4.8) 0.4 x10^3/uL (1.0-4.8) Monocytes # (Auto) 0.6 x10^3/uL (0.0-1.1) 0.5 x10^3/uL (0.0-1.1) Eosinophils # (Auto) 0.0 x10^3/uL (0.0-0.7) 0.0 x10^3/uL (0.0-0.7) Basophils # (Auto) 0.0 x10^3/uL (0.0-0.2) 0.0 x10^3/uL (0.0-0.2) Sodium Level 124 mmol/L (136-145) 128 mmol/L (136-145) Potassium Level 3.5 mmol/L (3.5-5.1) 3.8 mmol/L (3.5-5.1) Chloride Level 91 mmol/L (98-107) 96 mmol/L (98-107) Carbon Dioxide Level 23 mmol/L (21-32) 24 mmol/L (21-32) Anion Gap 10 (6-14) 8 (6-14) Blood Urea Nitrogen 7 mg/dL (8-26) 3 mg/dL (8-26) Creatinine 0.8 mg/dL (0.7-1.3) 0.6 mg/dL (0.7-1.3) Estimated GFR (Cockcroft-Gault) 108.8 151.6 BUN/Creatinine Ratio 9 (6-20) 5 (6-20) Glucose Level 111 mg/dL (70-99) 109 mg/dL (70-99) Calcium Level 8.7 mg/dL (8.5-10.1) 8.0 mg/dL (8.5-10.1) Magnesium Level 1.4 mg/dL (1.8-2.4) 1.6 mg/dL (1.8-2.4) Total Bilirubin 1.8 mg/dL (0.2-1.0) 1.1 mg/dL (0.2-1.0) Aspartate Amino Transf (AST/SGOT) 84 U/L (15-37) 62 U/L (15-37) Alanine Aminotransferase (ALT/SGPT) 51 U/L (16-63) 38 U/L (16-63) Alkaline Phosphatase 280 U/L (46-116) 232 U/L (46-116) Creatine Kinase 26 U/L (39-308) Creatine Kinase MB (Mass) < 0.5 ng/mL (0.0-3.6) Creatine Kinase MB Relative Index % (0-4) Troponin I Quantitative < 0.017 ng/mL (0.000-0.055) Total Protein 9.5 g/dL (6.4-8.2) 7.8 g/dL (6.4-8.2) Albumin 2.1 g/dL (3.4-5.0) 1.6 g/dL (3.4-5.0) Albumin/Globulin Ratio 0.3 (1.0-1.7) 0.3 (1.0-1.7) Ethyl Alcohol Level < 10 mg/dL (0-10) Urine Color Yellow Urine Clarity Clear Urine pH 7.0 Urine Specific [place] 1.010 Urine Protein Negative mg/dL (NEG-TRACE) Urine Glucose (UA) Negative mg/dL (NEG) Urine Ketones (Stick) Negative mg/dL (NEG) Urine Blood Negative (NEG) Urine Nitrite Negative (NEG) Urine Bilirubin Negative (NEG) Urine Urobilinogen Dipstick 1.0 mg/dL (0.2 mg/dL) Urine Leukocyte Esterase Negative (NEG) Urine RBC 0 /HPF (0-2) Urine WBC 1-4 /HPF (0-4) Urine Squamous Epithelial Cells Occ /LPF Urine Bacteria 0 /HPF (0-FEW) Urine Opiates Screen Neg (NEG) Urine Methadone Screen Neg (NEG) Urine Barbiturates Neg (NEG) Urine Phencyclidine Screen Neg (NEG) Urine Amphetamine/Methamphetamine Neg (NEG) Urine Benzodiazepines Screen Neg (NEG) Urine Cocaine Screen Neg (NEG) Urine Cannabinoids Screen Neg (NEG) Urine Ethyl Alcohol Neg (NEG) Laboratory Tests Test 12/24/18 16:15 12/24/18 18:07 12/25/18 06:00 White Blood Count 7.0 x10^3/uL (4.0-11.0) 4.9 x10^3/uL (4.0-11.0) Red Blood Count 4.16 x10^6/uL (4.30-5.70) 3.83 x10^6/uL (4.30-5.70) Hemoglobin 12.9 g/dL (13.0-17.5) 11.7 g/dL (13.0-17.5) Hematocrit 37.0 % (39.0-53.0) 34.6 % (39.0-53.0) Mean Corpuscular Volume 89 fL (79-100) 90 fL (79-100) Mean Corpuscular Hemoglobin 31 pg (25-35) 31 pg (25-35) Mean Corpuscular Hemoglobin Concent 35 g/dL (31-37) 34 g/dL (31-37) Red Cell Distribution Width 18.5 % (11.5-14.5) 18.5 % (11.5-14.5) Platelet Count 317 x10^3/uL (140-400) 241 x10^3/uL (140-400) Neutrophils (%) (Auto) 84 % (31-73) 81 % (31-73) Lymphocytes (%) (Auto) 6 % (24-48) 8 % (24-48) Monocytes (%) (Auto) 9 % (0-9) 10 % (0-9) Eosinophils (%) (Auto) 0 % (0-3) 0 % (0-3) Basophils (%) (Auto) 1 % (0-3) 1 % (0-3) Neutrophils # (Auto) 5.9 x10^3uL (1.8-7.7) 4.0 x10^3uL (1.8-7.7) Lymphocytes # (Auto) 0.4 x10^3/uL (1.0-4.8) 0.4 x10^3/uL (1.0-4.8) Monocytes # (Auto) 0.6 x10^3/uL (0.0-1.1) 0.5 x10^3/uL (0.0-1.1) Eosinophils # (Auto) 0.0 x10^3/uL (0.0-0.7) 0.0 x10^3/uL (0.0-0.7) Basophils # (Auto) 0.0 x10^3/uL (0.0-0.2) 0.0 x10^3/uL (0.0-0.2) Sodium Level 124 mmol/L (136-145) 128 mmol/L (136-145) Potassium Level 3.5 mmol/L (3.5-5.1) 3.8 mmol/L (3.5-5.1) Chloride Level 91 mmol/L (98-107) 96 mmol/L (98-107) Carbon Dioxide Level 23 mmol/L (21-32) 24 mmol/L (21-32) Anion Gap 10 (6-14) 8 (6-14) Blood Urea Nitrogen 7 mg/dL (8-26) 3 mg/dL (8-26) Creatinine 0.8 mg/dL (0.7-1.3) 0.6 mg/dL (0.7-1.3) Estimated GFR (Cockcroft-Gault) 108.8 151.6 BUN/Creatinine Ratio 9 (6-20) 5 (6-20) Glucose Level 111 mg/dL (70-99) 109 mg/dL (70-99) Calcium Level 8.7 mg/dL (8.5-10.1) 8.0 mg/dL (8.5-10.1) Magnesium Level 1.4 mg/dL (1.8-2.4) 1.6 mg/dL (1.8-2.4) Total Bilirubin 1.8 mg/dL (0.2-1.0) 1.1 mg/dL (0.2-1.0) Aspartate Amino Transf (AST/SGOT) 84 U/L (15-37) 62 U/L (15-37) Alanine Aminotransferase (ALT/SGPT) 51 U/L (16-63) 38 U/L (16-63) Alkaline Phosphatase 280 U/L (46-116) 232 U/L (46-116) Creatine Kinase 26 U/L (39-308) Creatine Kinase MB (Mass) < 0.5 ng/mL (0.0-3.6) Creatine Kinase MB Relative Index % (0-4) Troponin I Quantitative < 0.017 ng/mL (0.000-0.055) Total Protein 9.5 g/dL (6.4-8.2) 7.8 g/dL (6.4-8.2) Albumin 2.1 g/dL (3.4-5.0) 1.6 g/dL (3.4-5.0) Albumin/Globulin Ratio 0.3 (1.0-1.7) 0.3 (1.0-1.7) Ethyl Alcohol Level < 10 mg/dL (0-10) Urine Color Yellow Urine Clarity Clear Urine pH 7.0 Urine Specific [place] 1.010 Urine Protein Negative mg/dL (NEG-TRACE) Urine Glucose (UA) Negative mg/dL (NEG) Urine Ketones (Stick) Negative mg/dL (NEG) Urine Blood Negative (NEG) Urine Nitrite Negative (NEG) Urine Bilirubin Negative (NEG) Urine Urobilinogen Dipstick 1.0 mg/dL (0.2 mg/dL) Urine Leukocyte Esterase Negative (NEG) Urine RBC 0 /HPF (0-2) Urine WBC 1-4 /HPF (0-4) Urine Squamous Epithelial Cells Occ /LPF Urine Bacteria 0 /HPF (0-FEW) Urine Opiates Screen Neg (NEG) Urine Methadone Screen Neg (NEG) Urine Barbiturates Neg (NEG) Urine Phencyclidine Screen Neg (NEG) Urine Amphetamine/Methamphetamine Neg (NEG) Urine Benzodiazepines Screen Neg (NEG) Urine Cocaine Screen Neg (NEG) Urine Cannabinoids Screen Neg (NEG) Urine Ethyl Alcohol Neg (NEG) Medications Active Scripts Medications Dose Route/Sig Max Daily Dose Days Date Category No Known Medications Prior To Admisstion (Info) Each 1 Each 1X 12/25/18 Reported Impression . D/W DR GABRIELLE HU IN AM FULL CONSULT TO BE DICTATED GLEN MOLINA MD Dec 25, 2018 11:23
[2018-12-25] MEDS ORDERED: cloNIDine HCL 0.1 MG TABLET PO PRN (11:30)
[2018-12-25] MEDS ORDERED: diphenhydrAMINE 50 MG/ML VIAL IVP PRN (11:30)
--- NOTE | 2018-12-25 11:46 | PDOC ---
Infectious Disease Note Vital Sign Vital Signs Vital Signs Date Time Temp Pulse Resp B/P (MAP) Pulse Ox O2 Delivery O2 Flow Rate FiO2 12/25/18 08:00 Room Air 12/25/18 07:00 100.5 89 18 120/79 (93) 96 100.5 Labs Lab Laboratory Tests Test 12/24/18 16:15 12/24/18 18:07 12/25/18 06:00 White Blood Count 7.0 x10^3/uL (4.0-11.0) 4.9 x10^3/uL (4.0-11.0) Red Blood Count 4.16 x10^6/uL (4.30-5.70) 3.83 x10^6/uL (4.30-5.70) Hemoglobin 12.9 g/dL (13.0-17.5) 11.7 g/dL (13.0-17.5) Hematocrit 37.0 % (39.0-53.0) 34.6 % (39.0-53.0) Mean Corpuscular Volume 89 fL (79-100) 90 fL (79-100) Mean Corpuscular Hemoglobin 31 pg (25-35) 31 pg (25-35) Mean Corpuscular Hemoglobin Concent 35 g/dL (31-37) 34 g/dL (31-37) Red Cell Distribution Width 18.5 % (11.5-14.5) 18.5 % (11.5-14.5) Platelet Count 317 x10^3/uL (140-400) 241 x10^3/uL (140-400) Neutrophils (%) (Auto) 84 % (31-73) 81 % (31-73) Lymphocytes (%) (Auto) 6 % (24-48) 8 % (24-48) Monocytes (%) (Auto) 9 % (0-9) 10 % (0-9) Eosinophils (%) (Auto) 0 % (0-3) 0 % (0-3) Basophils (%) (Auto) 1 % (0-3) 1 % (0-3) Neutrophils # (Auto) 5.9 x10^3uL (1.8-7.7) 4.0 x10^3uL (1.8-7.7) Lymphocytes # (Auto) 0.4 x10^3/uL (1.0-4.8) 0.4 x10^3/uL (1.0-4.8) Monocytes # (Auto) 0.6 x10^3/uL (0.0-1.1) 0.5 x10^3/uL (0.0-1.1) Eosinophils # (Auto) 0.0 x10^3/uL (0.0-0.7) 0.0 x10^3/uL (0.0-0.7) Basophils # (Auto) 0.0 x10^3/uL (0.0-0.2) 0.0 x10^3/uL (0.0-0.2) Sodium Level 124 mmol/L (136-145) 128 mmol/L (136-145) Potassium Level 3.5 mmol/L (3.5-5.1) 3.8 mmol/L (3.5-5.1) Chloride Level 91 mmol/L (98-107) 96 mmol/L (98-107) Carbon Dioxide Level 23 mmol/L (21-32) 24 mmol/L (21-32) Anion Gap 10 (6-14) 8 (6-14) Blood Urea Nitrogen 7 mg/dL (8-26) 3 mg/dL (8-26) Creatinine 0.8 mg/dL (0.7-1.3) 0.6 mg/dL (0.7-1.3) Estimated GFR (Cockcroft-Gault) 108.8 151.6 BUN/Creatinine Ratio 9 (6-20) 5 (6-20) Glucose Level 111 mg/dL (70-99) 109 mg/dL (70-99) Calcium Level 8.7 mg/dL (8.5-10.1) 8.0 mg/dL (8.5-10.1) Magnesium Level 1.4 mg/dL (1.8-2.4) 1.6 mg/dL (1.8-2.4) Total Bilirubin 1.8 mg/dL (0.2-1.0) 1.1 mg/dL (0.2-1.0) Aspartate Amino Transf (AST/SGOT) 84 U/L (15-37) 62 U/L (15-37) Alanine Aminotransferase (ALT/SGPT) 51 U/L (16-63) 38 U/L (16-63) Alkaline Phosphatase 280 U/L (46-116) 232 U/L (46-116) Creatine Kinase 26 U/L (39-308) Creatine Kinase MB (Mass) < 0.5 ng/mL (0.0-3.6) Creatine Kinase MB Relative Index % (0-4) Troponin I Quantitative < 0.017 ng/mL (0.000-0.055) Total Protein 9.5 g/dL (6.4-8.2) 7.8 g/dL (6.4-8.2) Albumin 2.1 g/dL (3.4-5.0) 1.6 g/dL (3.4-5.0) Albumin/Globulin Ratio 0.3 (1.0-1.7) 0.3 (1.0-1.7) Ethyl Alcohol Level < 10 mg/dL (0-10) Urine Color Yellow Urine Clarity Clear Urine pH 7.0 Urine Specific [place] 1.010 Urine Protein Negative mg/dL (NEG-TRACE) Urine Glucose (UA) Negative mg/dL (NEG) Urine Ketones (Stick) Negative mg/dL (NEG) Urine Blood Negative (NEG) Urine Nitrite Negative (NEG) Urine Bilirubin Negative (NEG) Urine Urobilinogen Dipstick 1.0 mg/dL (0.2 mg/dL) Urine Leukocyte Esterase Negative (NEG) Urine RBC 0 /HPF (0-2) Urine WBC 1-4 /HPF (0-4) Urine Squamous Epithelial Cells Occ /LPF Urine Bacteria 0 /HPF (0-FEW) Urine Opiates Screen Neg (NEG) Urine Methadone Screen Neg (NEG) Urine Barbiturates Neg (NEG) Urine Phencyclidine Screen Neg (NEG) Urine Amphetamine/Methamphetamine Neg (NEG) Urine Benzodiazepines Screen Neg (NEG) Urine Cocaine Screen Neg (NEG) Urine Cannabinoids Screen Neg (NEG) Urine Ethyl Alcohol Neg (NEG) Micro IMPRESSION: 1. Suspected partially consolidated left upper lobe infiltrate with superimposed scattered bilateral nodular infiltrate. The possibility of pulmonary neoplasm is not excluded. Short-term radiographic or CT follow-up is indicated. 2. Prominent cardiac silhouette. Objective Assessment Fever Pneumonia Weight loss Hyponatremia Plan Plan of Care Blood cults times 2 Cont Doxy and Rocephin Await bronch 12/26 May need ECHO F/u labs and cults D/w Drs. Ibanez and Turner Thank you # [phone] REG ANTHONY MD Dec 25, 2018 11:46
[2018-12-25] MEDS: MULTIVIT INFUSN,ADULT 4,VIT K 10 ML, THIAMINE INJ 100 MG, FOLIC ACID INJ 1 MG in IV NOR... IV SCH (12:12)
[2018-12-25] MEDS: POTASSIUM CHLORIDE 20 MEQ TABLET.ER. PO SCH (12:16)
--- NOTE | 2018-12-25 12:20 | NUR ---
SS following for discharge planning. SS reviewed pt chart. Pt is self pay pt. HCFS following for self pay status. Pt is from home and is currently on room air. No discharge needs noted at this time. SS will continue to follow for discharge planning.
[2018-12-25] MEDS: cefTRIAXone IV Push 2 GM VIAL. IVP SCH (14:38)
[2018-12-25] MEDS: DOXYCYCLINE HYCLATE 100 MG TABLET PO SCH ×2 (14:39→20:27)
[2018-12-25 14:55] VITALS: BP 102/73
--- NOTE | 2018-12-25 16:05 | NUR ---
Report called to [facility] on 6S. Patient being transported to room 676 by transportation.
--- NOTE | 2018-12-25 18:34 | NUR ---
Patient transferred to the unit at 1640. He's awake, alert, oriented x 4, speaks minimal Scottish, however able to understand basic terms. He was oriented to the unit, call light placed within reach. Tele monitor placed, on sinus rhythm with rate at 70s to 80s. We'll continue to monitor.
[2018-12-25 19:40] VITALS: BP 123/90
[2018-12-25] MEDS: LORazepam 1 MG TABLET PO PRN (20:27)
--- NOTE | 2018-12-25 23:25 | CONS ---
DATE OF CONSULTATION: 12/25/2018 LOCATION OF THE PATIENT: Room 200. REQUESTING PHYSICIAN: Dr. Ibanez. REASON FOR CONSULTATION: Questionable TB. 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 He was brought to [facility] secondary to a nonproductive cough and weight loss. 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 Apparently, he has lost 25 pounds in the last month, has had a cough but denies any sputum production. There is report that he had been living in [place] for approximately 3-4 years ago and applied for a [employer] card and had hep A and B vaccinations and was reported to have been tested for TB but he states that it was negative. In the Emergency Room, he was found to be hyponatremic, sodium of 124. Did have a temperature today of 100.5. White blood cell count was 7 on arrival but did have 84% segs. Urine drug screen was negative and chest x-ray shows suspected partially consolidated left lower lobe infiltrate with superimposed scattered bilateral nodular infiltrates. He was given doses of ceftriaxone and doxycycline and admitted to the hospital. PAST MEDICAL HISTORY: Positive for questionable TB in the past. REVIEW OF SYSTEMS: Otherwise negative except for mentioned above. 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 Has a history of heavy alcohol abuse in the past. He is single and has no pets. Denies any farming history. He is not sexually active, would not answer sexual orientation questions. FAMILY HISTORY: Unknown. CURRENT MEDICATIONS: Again, he received a dose of doxycycline, Rocephin in the Emergency Room. He is getting some magnesium, Catapres, Benadryl p.r.n. and Ativan. PHYSICAL EXAMINATION: VITAL SIGNS: T-max 100.5, pulse 89, respirations 18, blood pressure 120/79 and satting 96% on room air. CONSTITUTIONAL: He is lying in bed. He appears comfortable. He is wearing a mask. HEENT: Pupils are equal and reactive. Oral cavity: Pharynx has some suspect dentition. NECK: Supple. LUNGS: With mild rhonchi. No gross wheeze. HEART: S1 and S2. Mild tachycardic. ABDOMEN: Soft and nontender. No guarding. EXTREMITIES: No clubbing or cyanosis. No gross edema. SKIN: Warm to touch without generalized signs of rash. NEUROLOGICAL: He is nonfocal. PSYCHIATRIC: Affect was appropriate. LABORATORY DATA: White count today 4.9, hemoglobin 11.7, platelets 241, neutrophils 81 and lymphs are 11. Creatinine 0.8, glucose 109, AST 62, ALT 38, alkaline phosphatase 232 and albumin 1.6. Urine clean. Toxicology screen negative. RADIOLOGICAL DATA: Chest x-ray reviewed in history of present illness. IMPRESSION: 1. Fever. 2. Pneumonia. 3. Weight loss. 4. Hyponatremia. PLAN: Obtain blood cultures x 2. Continue doxycycline and Rocephin. We did get permission for bronchoscopy, which we performed on the . May need echo. We will follow up labs and cultures. This was discussed with Dr. Ibanez as well as Dr. Tompkins. Thank you for asking me to participate in patient's care. Should you have any questions, please do not hesitate to contact me. REG ANTHONY MD DR: MARCOS/madisyn JOB#: [id number] / [id number]
[2018-12-26 03:50] VITALS: BP 126/92
[2018-12-26] MEDS: ACETAMINOPHEN 325 MG TABLET. PO PRN ×2 (05:59→19:37)
[2018-12-26] MEDS: LORazepam 1 MG TABLET PO PRN ×5 (06:01→22:09)
[2018-12-26 07:30] VITALS: BP 109/75
--- NOTE | 2018-12-26 08:47 | PDOC ---
PULMONARY PROGRESS NOTES Vitals Vital Signs Date Time Temp Pulse Resp B/P (MAP) Pulse Ox O2 Delivery O2 Flow Rate FiO2 12/26/18 07:30 97.2 78 16 109/75 (86) 98 Room Air 97.2 Labs Laboratory Tests Test 12/24/18 16:15 12/24/18 18:07 12/25/18 06:00 White Blood Count 7.0 x10^3/uL (4.0-11.0) 4.9 x10^3/uL (4.0-11.0) Red Blood Count 4.16 x10^6/uL (4.30-5.70) 3.83 x10^6/uL (4.30-5.70) Hemoglobin 12.9 g/dL (13.0-17.5) 11.7 g/dL (13.0-17.5) Hematocrit 37.0 % (39.0-53.0) 34.6 % (39.0-53.0) Mean Corpuscular Volume 89 fL (79-100) 90 fL (79-100) Mean Corpuscular Hemoglobin 31 pg (25-35) 31 pg (25-35) Mean Corpuscular Hemoglobin Concent 35 g/dL (31-37) 34 g/dL (31-37) Red Cell Distribution Width 18.5 % (11.5-14.5) 18.5 % (11.5-14.5) Platelet Count 317 x10^3/uL (140-400) 241 x10^3/uL (140-400) Neutrophils (%) (Auto) 84 % (31-73) 81 % (31-73) Lymphocytes (%) (Auto) 6 % (24-48) 8 % (24-48) Monocytes (%) (Auto) 9 % (0-9) 10 % (0-9) Eosinophils (%) (Auto) 0 % (0-3) 0 % (0-3) Basophils (%) (Auto) 1 % (0-3) 1 % (0-3) Neutrophils # (Auto) 5.9 x10^3uL (1.8-7.7) 4.0 x10^3uL (1.8-7.7) Lymphocytes # (Auto) 0.4 x10^3/uL (1.0-4.8) 0.4 x10^3/uL (1.0-4.8) Monocytes # (Auto) 0.6 x10^3/uL (0.0-1.1) 0.5 x10^3/uL (0.0-1.1) Eosinophils # (Auto) 0.0 x10^3/uL (0.0-0.7) 0.0 x10^3/uL (0.0-0.7) Basophils # (Auto) 0.0 x10^3/uL (0.0-0.2) 0.0 x10^3/uL (0.0-0.2) Sodium Level 124 mmol/L (136-145) 128 mmol/L (136-145) Potassium Level 3.5 mmol/L (3.5-5.1) 3.8 mmol/L (3.5-5.1) Chloride Level 91 mmol/L (98-107) 96 mmol/L (98-107) Carbon Dioxide Level 23 mmol/L (21-32) 24 mmol/L (21-32) Anion Gap 10 (6-14) 8 (6-14) Blood Urea Nitrogen 7 mg/dL (8-26) 3 mg/dL (8-26) Creatinine 0.8 mg/dL (0.7-1.3) 0.6 mg/dL (0.7-1.3) Estimated GFR (Cockcroft-Gault) 108.8 151.6 BUN/Creatinine Ratio 9 (6-20) 5 (6-20) Glucose Level 111 mg/dL (70-99) 109 mg/dL (70-99) Calcium Level 8.7 mg/dL (8.5-10.1) 8.0 mg/dL (8.5-10.1) Magnesium Level 1.4 mg/dL (1.8-2.4) 1.6 mg/dL (1.8-2.4) Total Bilirubin 1.8 mg/dL (0.2-1.0) 1.1 mg/dL (0.2-1.0) Aspartate Amino Transf (AST/SGOT) 84 U/L (15-37) 62 U/L (15-37) Alanine Aminotransferase (ALT/SGPT) 51 U/L (16-63) 38 U/L (16-63) Alkaline Phosphatase 280 U/L (46-116) 232 U/L (46-116) Creatine Kinase 26 U/L (39-308) Creatine Kinase MB (Mass) < 0.5 ng/mL (0.0-3.6) Creatine Kinase MB Relative Index % (0-4) Troponin I Quantitative < 0.017 ng/mL (0.000-0.055) Total Protein 9.5 g/dL (6.4-8.2) 7.8 g/dL (6.4-8.2) Albumin 2.1 g/dL (3.4-5.0) 1.6 g/dL (3.4-5.0) Albumin/Globulin Ratio 0.3 (1.0-1.7) 0.3 (1.0-1.7) Ethyl Alcohol Level < 10 mg/dL (0-10) Urine Color Yellow Urine Clarity Clear Urine pH 7.0 Urine Specific [place] 1.010 Urine Protein Negative mg/dL (NEG-TRACE) Urine Glucose (UA) Negative mg/dL (NEG) Urine Ketones (Stick) Negative mg/dL (NEG) Urine Blood Negative (NEG) Urine Nitrite Negative (NEG) Urine Bilirubin Negative (NEG) Urine Urobilinogen Dipstick 1.0 mg/dL (0.2 mg/dL) Urine Leukocyte Esterase Negative (NEG) Urine RBC 0 /HPF (0-2) Urine WBC 1-4 /HPF (0-4) Urine Squamous Epithelial Cells Occ /LPF Urine Bacteria 0 /HPF (0-FEW) Urine Opiates Screen Neg (NEG) Urine Methadone Screen Neg (NEG) Urine Barbiturates Neg (NEG) Urine Phencyclidine Screen Neg (NEG) Urine Amphetamine/Methamphetamine Neg (NEG) Urine Benzodiazepines Screen Neg (NEG) Urine Cocaine Screen Neg (NEG) Urine Cannabinoids Screen Neg (NEG) Urine Ethyl Alcohol Neg (NEG) Medications Active Scripts Medications Dose Route/Sig Max Daily Dose Days Date Category No Known Medications Prior To Admisstion (Info) Each 1 Each 1X 12/25/18 Reported Impression . D/W DR GABRIELLE HU IN AM FULL CONSULT TO BE DICTATED GLEN MOLINA MD Dec 26, 2018 08:47
[2018-12-26] MEDS: DOXYCYCLINE HYCLATE 100 MG TABLET PO SCH ×2 (08:59→19:38)
[2018-12-26] MEDS: POTASSIUM CHLORIDE 20 MEQ TABLET.ER. PO SCH (08:59)
[2018-12-26] MEDS: MULTIVIT INFUSN,ADULT 4,VIT K 10 ML, THIAMINE INJ 100 MG, FOLIC ACID INJ 1 MG in IV NOR... IV SCH (08:59)
[2018-12-26] MEDS ORDERED: EPINEPHrine 1 MG/ML VIAL INJ PRN (10:00)
[2018-12-26] MEDS ORDERED: LIDOCAINE 1% Multi-Dose 20 ML VIAL. INJ PRN (10:00)
[2018-12-26] MEDS ORDERED: LIDOCAINE 4% TOPICAL 50 ML SOLUTION. MM PRN (10:00)
[2018-12-26] MEDS ORDERED: ALBUTEROL SULFATE 2.5 MG/3 ML NEBU. NEB PRN (10:00)
[2018-12-26] MEDS ORDERED: LIDOCAINE 2% VISCOUS 100 ML BOTTLE. MM PRN (10:00)
[2018-12-26] MEDS ORDERED: LIDOCAINE 1% Multi-Dose 20 ML VIAL. ONE (10:16)
[2018-12-26] MEDS ORDERED: LIDOCAINE 4% TOPICAL 50 ML SOLUTION. ONE (10:16)
[2018-12-26] MEDS ORDERED: LIDOCAINE 2% VISCOUS 100 ML BOTTLE. ONE (10:16)
[2018-12-26] MEDS ORDERED: EPINEPHrine 1 MG/ML VIAL ONE (10:16)
[2018-12-26 11:24] VITALS: BP 101/75
--- NOTE | 2018-12-26 11:52 | NUR ---
SW following pt. ID consulted, no dc recommendation at this time. Will continue to eval needs.
[2018-12-26] MEDS: cefTRIAXone IV Push 2 GM VIAL. IVP SCH (12:00)
--- NOTE | 2018-12-26 12:13 | PDOC ---
[employer] PROGRESS NOTE Chief Complaint Chief Complaint Cough Fevers Prior history of TB History of Present Illness History of Present Illness Mr Rhodes is a 38 yo M w/ PMHx TB who presents to ER via with his brother for concerns of nonproductive cough and weight loss. Pt seen and examined this evening DW ABEL Elkins Having Tachycardia Consulted Cards Replaced Mg++ Bronch done this am Vitals Vitals Vital Signs Date Time Temp Pulse Resp B/P (MAP) Pulse Ox O2 Delivery O2 Flow Rate FiO2 12/26/18 11:24 96.5 85 16 101/75 (84) 98 Room Air 96.5 Physical Exam General: No acute distress, Other (sleeping) Heart: Regular rate, Normal S1 Lungs: Crackles Abdomen: Normal bowel sounds, Soft, No tenderness, No hepatosplenomegaly, No masses Extremities: No clubbing, No cyanosis, No edema, Normal pulses, No tenderness/swelling Skin: No rashes, No breakdown, No significant lesion Assessment and Plan Assessmemt and Plan Problems Medical Problems: (1) Hyponatremia Status: Acute Cough Fevers Weakness Tachycardia Plan Consulted Cards Replaced Mg++ Bronch done this am Antibiotics per infectious disease Await bronch report Home meds Labs Respiratory isolation for TB precautions DVT prophylaxis Full code Total time 31 minutes Comment Review of Relevant I have reviewed the following items zoe (where applicable) has been applied. Labs Laboratory Tests Test 12/24/18 16:15 12/24/18 18:07 12/25/18 06:00 White Blood Count 7.0 x10^3/uL (4.0-11.0) 4.9 x10^3/uL (4.0-11.0) Red Blood Count 4.16 x10^6/uL (4.30-5.70) 3.83 x10^6/uL (4.30-5.70) Hemoglobin 12.9 g/dL (13.0-17.5) 11.7 g/dL (13.0-17.5) Hematocrit 37.0 % (39.0-53.0) 34.6 % (39.0-53.0) Mean Corpuscular Volume 89 fL (79-100) 90 fL (79-100) Mean Corpuscular Hemoglobin 31 pg (25-35) 31 pg (25-35) Mean Corpuscular Hemoglobin Concent 35 g/dL (31-37) 34 g/dL (31-37) Red Cell Distribution Width 18.5 % (11.5-14.5) 18.5 % (11.5-14.5) Platelet Count 317 x10^3/uL (140-400) 241 x10^3/uL (140-400) Neutrophils (%) (Auto) 84 % (31-73) 81 % (31-73) Lymphocytes (%) (Auto) 6 % (24-48) 8 % (24-48) Monocytes (%) (Auto) 9 % (0-9) 10 % (0-9) Eosinophils (%) (Auto) 0 % (0-3) 0 % (0-3) Basophils (%) (Auto) 1 % (0-3) 1 % (0-3) Neutrophils # (Auto) 5.9 x10^3uL (1.8-7.7) 4.0 x10^3uL (1.8-7.7) Lymphocytes # (Auto) 0.4 x10^3/uL (1.0-4.8) 0.4 x10^3/uL (1.0-4.8) Monocytes # (Auto) 0.6 x10^3/uL (0.0-1.1) 0.5 x10^3/uL (0.0-1.1) Eosinophils # (Auto) 0.0 x10^3/uL (0.0-0.7) 0.0 x10^3/uL (0.0-0.7) Basophils # (Auto) 0.0 x10^3/uL (0.0-0.2) 0.0 x10^3/uL (0.0-0.2) Sodium Level 124 mmol/L (136-145) 128 mmol/L (136-145) Potassium Level 3.5 mmol/L (3.5-5.1) 3.8 mmol/L (3.5-5.1) Chloride Level 91 mmol/L (98-107) 96 mmol/L (98-107) Carbon Dioxide Level 23 mmol/L (21-32) 24 mmol/L (21-32) Anion Gap 10 (6-14) 8 (6-14) Blood Urea Nitrogen 7 mg/dL (8-26) 3 mg/dL (8-26) Creatinine 0.8 mg/dL (0.7-1.3) 0.6 mg/dL (0.7-1.3) Estimated GFR (Cockcroft-Gault) 108.8 151.6 BUN/Creatinine Ratio 9 (6-20) 5 (6-20) Glucose Level 111 mg/dL (70-99) 109 mg/dL (70-99) Calcium Level 8.7 mg/dL (8.5-10.1) 8.0 mg/dL (8.5-10.1) Magnesium Level 1.4 mg/dL (1.8-2.4) 1.6 mg/dL (1.8-2.4) Total Bilirubin 1.8 mg/dL (0.2-1.0) 1.1 mg/dL (0.2-1.0) Aspartate Amino Transf (AST/SGOT) 84 U/L (15-37) 62 U/L (15-37) Alanine Aminotransferase (ALT/SGPT) 51 U/L (16-63) 38 U/L (16-63) Alkaline Phosphatase 280 U/L (46-116) 232 U/L (46-116) Creatine Kinase 26 U/L (39-308) Creatine Kinase MB (Mass) < 0.5 ng/mL (0.0-3.6) Creatine Kinase MB Relative Index % (0-4) Troponin I Quantitative < 0.017 ng/mL (0.000-0.055) Total Protein 9.5 g/dL (6.4-8.2) 7.8 g/dL (6.4-8.2) Albumin 2.1 g/dL (3.4-5.0) 1.6 g/dL (3.4-5.0) Albumin/Globulin Ratio 0.3 (1.0-1.7) 0.3 (1.0-1.7) Ethyl Alcohol Level < 10 mg/dL (0-10) Urine Color Yellow Urine Clarity Clear Urine pH 7.0 Urine Specific [place] 1.010 Urine Protein Negative mg/dL (NEG-TRACE) Urine Glucose (UA) Negative mg/dL (NEG) Urine Ketones (Stick) Negative mg/dL (NEG) Urine Blood Negative (NEG) Urine Nitrite Negative (NEG) Urine Bilirubin Negative (NEG) Urine Urobilinogen Dipstick 1.0 mg/dL (0.2 mg/dL) Urine Leukocyte Esterase Negative (NEG) Urine RBC 0 /HPF (0-2) Urine WBC 1-4 /HPF (0-4) Urine Squamous Epithelial Cells Occ /LPF Urine Bacteria 0 /HPF (0-FEW) Urine Opiates Screen Neg (NEG) Urine Methadone Screen Neg (NEG) Urine Barbiturates Neg (NEG) Urine Phencyclidine Screen Neg (NEG) Urine Amphetamine/Methamphetamine Neg (NEG) Urine Benzodiazepines Screen Neg (NEG) Urine Cocaine Screen Neg (NEG) Urine Cannabinoids Screen Neg (NEG) Urine Ethyl Alcohol Neg (NEG) Medications Current Medications Sodium Chloride 1,000 ml @ 1,000 mls/hr 1X ONCE IV Last administered on 12/24/18 17:29; Start 12/24/18 at 17:15; Stop 12/24/18 at 18:14; Status DC Magnesium Sulfate 50 ml @ 25 mls/hr 1X ONCE IV Last administered on 12/24/18 19:36; Start 12/24/18 at 19:00; Stop 12/24/18 at 20:59; Status DC Ceftriaxone Sodium (Rocephin) 1 gm 1X ONCE IVP Last administered on 12/24/18 20:17; Start 12/24/18 at 19:45; Stop 12/24/18 at 19:46; Status DC Doxycycline Hyclate 100 mg/ Dextrose 100 ml @ 50 mls/hr 1X ONCE IV Last administered on 12/24/18 20:18; Start 12/24/18 at 19:45; Stop 12/24/18 at 21:44; Status DC Sodium Chloride 1,000 ml @ 100 mls/hr 1X ONCE IV Last administered on 12/24/18 20:17; Start 12/24/18 at 19:45; Stop 12/25/18 at 05:44; Status DC Magnesium Sulfate 50 ml @ 25 mls/hr 1X ONCE IV Last administered on 12/25/18at 08:39; Start 12/25/18 at 09:00; Stop 12/25/18 at 10:59; Status DC Potassium Chloride (Klor-Con) 20 meq [id number] PO Last administered on 12/26/18at 08:59; Start 12/25/18 at 12:00 Multivitamins 10 ml/Thiamine HCl 100 mg/Folic Acid 1 mg/Sodium Chloride 1,011.2 ml @ 100 mls/ hr DAILY IV Last administered on 12/26/18at 08:59; Start 12/25/18 at 12:30; Stop 12/29/18 at 19:07 Lorazepam (Ativan) 1 mg PRN Q1HR PRN PO For CIWA 8-14 Last administered on 12/26/18at 08:59; Start 12/25/18 at 11:30 Lorazepam (Ativan Inj) 0.5 mg PRN Q1HR PRN IV For CIWA 8-14; Start 12/25/18 at 11:30 Diphenhydramine HCl (Benadryl) 25 mg PRN Q15MIN PRN IVP EPS symptoms 2'Haldol admin; Start 12/25/18 at 11:30 Clonidine HCl (Catapres) 0.1 mg PRN Q1HR PRN PO SBP > 180 or DBP > 100, MRX3; Start 12/25/18 at 11:30 Magnesium Sulfate 50 ml @ 25 mls/hr 1X ONCE IV Last administered on 12/25/18at 12:11; Start 12/25/18 at 11:45; Stop 12/25/18 at 13:44; Status DC Ceftriaxone Sodium (Rocephin) 2 gm Q24H IVP Last administered on 12/25/18at 14:38; Start 12/25/18 at 12:00 Doxycycline Hyclate (Vibra-Tab) 100 mg BID PO Last administered on 12/26/18at 08:59; Start 12/25/18 at 12:00 Acetaminophen (Tylenol) 650 mg PRN Q6HRS PRN PO FEVER Last administered on 12/26/18at 05:59; Start 12/26/18 at 06:00 Albuterol Sulfate (Ventolin Neb Soln) 2.5 mg PRN 1X PRN NEB SHORTNESS OF BREATH; Start 12/26/18 at 10:00; Stop 12/26/18 at 18:00 Lidocaine HCl (Lidocaine 2% Viscous) 100 ml PRN 1X PRN MM MOUTH PAIN; Start 12/26/18 at 10:00; Stop 12/26/18 at 18:00 Lidocaine HCl (Lidocaine 1% 20ml Vial) 20 ml PRN 1X PRN INJ SEE COMMENTS; Start 12/26/18 at 10:00; Stop 12/26/18 at 18:00 Epinephrine HCl (Adrenalin) 1 mg PRN 1X PRN INJ SEE COMMENTS; Start 12/26/18 at 10:00; Stop 12/26/18 at 18:00 Lidocaine HCl 50 ml PRN 1X PRN MM SEE COMMENTS; Start 12/26/18 at 10:00; Stop 12/26/18 at 18:00 Epinephrine HCl (Adrenalin) 1 mg STK-MED ONCE .ROUTE ; Start 12/26/18 at 10:16; Stop 12/26/18 at 10:17; Status DC Lidocaine HCl (Lidocaine 1% 20ml Vial) 20 ml STK-MED ONCE .ROUTE ; Start 12/26/18 at 10:16; Stop 12/26/18 at 10:17; Status DC Lidocaine HCl (Lidocaine 2% Viscous) 100 ml STK-MED ONCE .ROUTE ; Start 12/26/18 at 10:16; Stop 12/26/18 at 10:17; Status DC Lidocaine HCl 50 ml STK-MED ONCE .ROUTE ; Start 12/26/18 at 10:16; Stop 12/26/18 at 10:17; Status DC Active Scripts Active Reported No Known Medications Prior To Admisstion (Info) Each 1 Each MC 1X Vitals/I & O Vital Sign - Last 24 Hours 12/25/18 12/25/18 12/25/18 12/26/18 14:55 19:40 20:00 03:50 Temp 98.9 100.1 102.4 98.9 100.1 102.4 Pulse 95 100 101 Resp 12 18 16 B/P (MAP) 102/73 (83) 123/90 (101) 126/92 (103) Pulse Ox 99 98 99 O2 Delivery Room Air Room Air Room Air Room Air 12/26/18 12/26/18 07:30 11:24 Temp 97.2 96.5 97.2 96.5 Pulse 78 85 Resp 16 16 B/P (MAP) 109/75 (86) 101/75 (84) Pulse Ox 98 98 O2 Delivery Room Air Room Air Intake and Output 12/25/18 12/25/18 12/26/18 15:00 23:00 07:00 Intake Total 340 ml Output Total 500 ml 200 ml Balance -500 ml 140 ml CASTLE,NIAL K III DO Dec 26, 2018 12:13
[2018-12-26] MEDS ORDERED: PROPOFOL 20 ML IV ONE (12:51)
[2018-12-26] MEDS: IV RINGERS,LACTATED 1000ML 1,000 ML IV SCH ×2 (12:59→19:30)
--- NOTE | 2018-12-26 15:26 | PDOC ---
PULMONARY PROGRESS NOTES Vitals Vital Signs Date Time Temp Pulse Resp B/P (MAP) Pulse Ox O2 Delivery O2 Flow Rate FiO2 12/26/18 14:00 99 18 126/88 94 Room Air 12/26/18 13:15 5 12/26/18 12:54 98.4 98.4 Lungs: Crackles Labs Laboratory Tests Test 12/24/18 16:15 12/24/18 18:07 12/25/18 06:00 White Blood Count 7.0 x10^3/uL (4.0-11.0) 4.9 x10^3/uL (4.0-11.0) Red Blood Count 4.16 x10^6/uL (4.30-5.70) 3.83 x10^6/uL (4.30-5.70) Hemoglobin 12.9 g/dL (13.0-17.5) 11.7 g/dL (13.0-17.5) Hematocrit 37.0 % (39.0-53.0) 34.6 % (39.0-53.0) Mean Corpuscular Volume 89 fL (79-100) 90 fL (79-100) Mean Corpuscular Hemoglobin 31 pg (25-35) 31 pg (25-35) Mean Corpuscular Hemoglobin Concent 35 g/dL (31-37) 34 g/dL (31-37) Red Cell Distribution Width 18.5 % (11.5-14.5) 18.5 % (11.5-14.5) Platelet Count 317 x10^3/uL (140-400) 241 x10^3/uL (140-400) Neutrophils (%) (Auto) 84 % (31-73) 81 % (31-73) Lymphocytes (%) (Auto) 6 % (24-48) 8 % (24-48) Monocytes (%) (Auto) 9 % (0-9) 10 % (0-9) Eosinophils (%) (Auto) 0 % (0-3) 0 % (0-3) Basophils (%) (Auto) 1 % (0-3) 1 % (0-3) Neutrophils # (Auto) 5.9 x10^3uL (1.8-7.7) 4.0 x10^3uL (1.8-7.7) Lymphocytes # (Auto) 0.4 x10^3/uL (1.0-4.8) 0.4 x10^3/uL (1.0-4.8) Monocytes # (Auto) 0.6 x10^3/uL (0.0-1.1) 0.5 x10^3/uL (0.0-1.1) Eosinophils # (Auto) 0.0 x10^3/uL (0.0-0.7) 0.0 x10^3/uL (0.0-0.7) Basophils # (Auto) 0.0 x10^3/uL (0.0-0.2) 0.0 x10^3/uL (0.0-0.2) Sodium Level 124 mmol/L (136-145) 128 mmol/L (136-145) Potassium Level 3.5 mmol/L (3.5-5.1) 3.8 mmol/L (3.5-5.1) Chloride Level 91 mmol/L (98-107) 96 mmol/L (98-107) Carbon Dioxide Level 23 mmol/L (21-32) 24 mmol/L (21-32) Anion Gap 10 (6-14) 8 (6-14) Blood Urea Nitrogen 7 mg/dL (8-26) 3 mg/dL (8-26) Creatinine 0.8 mg/dL (0.7-1.3) 0.6 mg/dL (0.7-1.3) Estimated GFR (Cockcroft-Gault) 108.8 151.6 BUN/Creatinine Ratio 9 (6-20) 5 (6-20) Glucose Level 111 mg/dL (70-99) 109 mg/dL (70-99) Calcium Level 8.7 mg/dL (8.5-10.1) 8.0 mg/dL (8.5-10.1) Magnesium Level 1.4 mg/dL (1.8-2.4) 1.6 mg/dL (1.8-2.4) Total Bilirubin 1.8 mg/dL (0.2-1.0) 1.1 mg/dL (0.2-1.0) Aspartate Amino Transf (AST/SGOT) 84 U/L (15-37) 62 U/L (15-37) Alanine Aminotransferase (ALT/SGPT) 51 U/L (16-63) 38 U/L (16-63) Alkaline Phosphatase 280 U/L (46-116) 232 U/L (46-116) Creatine Kinase 26 U/L (39-308) Creatine Kinase MB (Mass) < 0.5 ng/mL (0.0-3.6) Creatine Kinase MB Relative Index % (0-4) Troponin I Quantitative < 0.017 ng/mL (0.000-0.055) Total Protein 9.5 g/dL (6.4-8.2) 7.8 g/dL (6.4-8.2) Albumin 2.1 g/dL (3.4-5.0) 1.6 g/dL (3.4-5.0) Albumin/Globulin Ratio 0.3 (1.0-1.7) 0.3 (1.0-1.7) Ethyl Alcohol Level < 10 mg/dL (0-10) Urine Color Yellow Urine Clarity Clear Urine pH 7.0 Urine Specific [place] 1.010 Urine Protein Negative mg/dL (NEG-TRACE) Urine Glucose (UA) Negative mg/dL (NEG) Urine Ketones (Stick) Negative mg/dL (NEG) Urine Blood Negative (NEG) Urine Nitrite Negative (NEG) Urine Bilirubin Negative (NEG) Urine Urobilinogen Dipstick 1.0 mg/dL (0.2 mg/dL) Urine Leukocyte Esterase Negative (NEG) Urine RBC 0 /HPF (0-2) Urine WBC 1-4 /HPF (0-4) Urine Squamous Epithelial Cells Occ /LPF Urine Bacteria 0 /HPF (0-FEW) Urine Opiates Screen Neg (NEG) Urine Methadone Screen Neg (NEG) Urine Barbiturates Neg (NEG) Urine Phencyclidine Screen Neg (NEG) Urine Amphetamine/Methamphetamine Neg (NEG) Urine Benzodiazepines Screen Neg (NEG) Urine Cocaine Screen Neg (NEG) Urine Cannabinoids Screen Neg (NEG) Urine Ethyl Alcohol Neg (NEG) Medications Active Scripts Medications Dose Route/Sig Max Daily Dose Days Date Category No Known Medications Prior To Admisstion (Info) Each 1 Each 1X 12/25/18 Reported Impression . D/W DR ANTHONY BRONCH today FULL CONSULT DICTATED GLEN MOLINA MD Dec 26, 2018 15:26
--- NOTE | 2018-12-26 15:30 | PDOC4 ---
PROCEDURE Procedure BRONCH no endo lesion, NO PURULENT SECRETIONS BAL PERFORMED GLEN MOLINA MD Dec 26, 2018 15:30
[2018-12-26 15:45] VITALS: BP 146/107
--- NOTE | 2018-12-26 16:15 | NUR ---
Pt heart rate staying in 140s even at rest. No longer just with activity. Spoke to Dr Lara. Received orders. Spoke to Janeth HALL with cardiology. He is aware of new orders.
--- NOTE | 2018-12-26 16:33 | EKG ---
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
[2018-12-26 18:22] LABS: CALCIUM 8.5 mg/dL (8.5-10.1); CREATININE 0.7 mg/dL (0.7-1.3); GFR 126.9; MAGNESIUM 1.5 mg/dL (1.8-2.4)
[2018-12-26] MEDS ORDERED: MAGNESIUM SULFATE 2GM 50 ML IV ONE (18:30)
[2018-12-26 19:20] VITALS: BP 110/75
--- NOTE | 2018-12-26 19:53 | OP ---
DATE OF SURGERY: 12/26/2018 ATTENDING PHYSICIAN: Dr. Ibanez. PROCEDURE: Bronchoscopy. INDICATIONS: The patient, with prior history of questionable tuberculosis having nodular type of infiltrates on chest x-ray, undergoing diagnostic bronchoscopy. Risks, benefits and alternatives reviewed with the patient through the film waxer yesterday. Dr. Talbert was the person that obtained the consent. DESCRIPTION OF PROCEDURE: A timeout was performed prior to sedation. Vital signs and O2 saturation were maintained within normal limits throughout the procedure. The bronchoscope was passed through the left naris. The vocal cords were identified moving bilaterally without any dysfunction. The vocal cords were then anesthetized with a total of 5 mL of 4% lidocaine. The bronchoscope was passed through the vocal cords into the proximal trachea, which was normal. The right and left segments and subsegments were inspected. There were no endobronchial lesions. Bronchoalveolar lavage was performed of the right lower lobe and left lower lobe. The return was clear. IMPRESSION: 1. Normal vocal cords. 2. No endobronchial lesion. PLAN: We will await the BAL results. GLEN MOLINA MD DR: UBALDO/madisyn JOB#: [id number] / [id number]
[2018-12-26] MEDS ORDERED: METOPROLOL TARTRATE 5 MG/5 ML VIAL. IVP ONE (20:15)
[2018-12-26 23:38] VITALS: BP 90/59
[2018-12-27] VITALS (7 sets, daily range): BP systolic 95–126; BP diastolic 62–92
[2018-12-27] MEDS: LORazepam 1 MG TABLET PO PRN ×3 (00:29→05:10)
[2018-12-27 03:44] LABS: BASO % 1 % (0-3); EOS % 1 % (0-3); HEMATOCRIT 38.5 % (39.0-53.0); HEMOGLOBIN 12.8 g/dL (13.0-17.5); LYMPH # 0.8 x10^3/uL (1.0-4.8); LYMPH % 13 % (24-48); MEAN CORPUSCULAR HEMOGLOBIN 31 pg (25-35); MEAN CORPUSCULAR HGB CONC 33 g/dL (31-37); MEAN CORPUSCULAR VOLUME 92 fL (79-100); MONO # 0.8 x10^3/uL (0.0-1.1); MONO % 12 % (0-9); NEUT # 4.8 x10^3uL (1.8-7.7); NEUT % 75 % (31-73); PLATELET COUNT 208 x10^3/uL (140-400); RED CELL DISTRIBUTION WIDTH 18.8 % (11.5-14.5); WHITE BLOOD COUNT 6.5 x10^3/uL (4.0-11.0)
--- NOTE | 2018-12-27 08:53 | CONS ---
DATE OF CONSULTATION: 12/26/2018 ATTENDING PHYSICIAN: Dr. Ibanez. REASON FOR CONSULTATION: The patient seen in pulmonary consultation at the request of Dr. Ibanez for abnormal chest x-ray, possible tuberculosis. HISTORY OF PRESENT ILLNESS: The patient is a 38-year-old gentleman from [facility], the history is obtained by reviewing the current consultation from Dr. Casiano, I spoke with Dr. Casiano yesterday. The patient has a history of tuberculosis 3-4 years ago in [facility], he was admitted with increasing shortness of breath and some nonproductive cough. He also has a history of alcohol abuse. Part of his workup included chest x-ray, which revealed some bilateral pulmonary infiltrates. I was asked to see him in consultation for possible tuberculosis. He did have a temperature yesterday 100.5. His urine drug screen was negative. Dr. Casiano placed him on Rocephin and doxycycline. He did obtain permission for bronchoscopy. PAST MEDICAL HISTORY: Otherwise remarkable for positive questionable TB in the past. REVIEW OF SYSTEMS: Unobtainable secondary to the patient's condition. 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 Denies any significant drug use. He does drink. FAMILY HISTORY: Unknown. CURRENT MEDICATIONS: List was reviewed. PHYSICAL EXAMINATION: VITAL SIGNS: Stable. O2 saturation was greater than 92%. LUNGS: Clear. No wheezes. CARDIOVASCULAR: Regular rate and rhythm with S1, S2, no S3. ABDOMEN: Soft, nontender, nondistended. EXTREMITIES: No clubbing, cyanosis or edema. LABORATORY DATA: Reviewed. Chest x-ray reveals some bilateral nodular type of infiltrates. IMPRESSION: 1. Questionable history of tuberculosis. 2. Fever. 3. Pneumonia. Suspect gram-negative, possible gram-positive. 4. Weight loss. 5. Hyponatremia. PLAN: 1. Continue current antibiotics. 2. Bronchoscopy today. GLEN MOLINA MD DR: UBALDO/madisyn JOB#: [id number] / [id number]
[2018-12-27] MEDS: ACETAMINOPHEN 325 MG TABLET. PO PRN ×2 (09:10→21:28)
[2018-12-27] MEDS: DOXYCYCLINE HYCLATE 100 MG TABLET PO SCH ×2 (09:10→21:28)
[2018-12-27] MEDS: MULTIVIT INFUSN,ADULT 4,VIT K 10 ML, THIAMINE INJ 100 MG, FOLIC ACID INJ 1 MG in IV NOR... IV SCH (09:10)
[2018-12-27] MEDS: POTASSIUM CHLORIDE 20 MEQ TABLET.ER. PO SCH (09:11)
--- NOTE | 2018-12-27 09:12 | PDOC ---
PULMONARY PROGRESS NOTES Vitals Vital Signs Date Time Temp Pulse Resp B/P (MAP) Pulse Ox O2 Delivery O2 Flow Rate FiO2 12/27/18 07:35 102.0 109 20 119/86 (97) 97 Room Air 102.0 12/26/18 13:15 5 Lungs: Crackles Labs Laboratory Tests Test 12/26/18 16:30 12/27/18 03:35 Sodium Level 131 mmol/L (136-145) Potassium Level 4.0 mmol/L (3.5-5.1) Chloride Level 96 mmol/L (98-107) Carbon Dioxide Level 23 mmol/L (21-32) Anion Gap 12 (6-14) Blood Urea Nitrogen 4 mg/dL (8-26) Creatinine 0.7 mg/dL (0.7-1.3) Estimated GFR (Cockcroft-Gault) 126.9 Glucose Level 157 mg/dL (70-99) Calcium Level 8.5 mg/dL (8.5-10.1) Magnesium Level 1.5 mg/dL (1.8-2.4) Troponin I Quantitative < 0.017 ng/mL (0.000-0.055) Thyroid Stimulating Hormone (TSH) 4.693 uIU/mL (0.358-3.74) White Blood Count 6.5 x10^3/uL (4.0-11.0) Red Blood Count 4.20 x10^6/uL (4.30-5.70) Hemoglobin 12.8 g/dL (13.0-17.5) Hematocrit 38.5 % (39.0-53.0) Mean Corpuscular Volume 92 fL (79-100) Mean Corpuscular Hemoglobin 31 pg (25-35) Mean Corpuscular Hemoglobin Concent 33 g/dL (31-37) Red Cell Distribution Width 18.8 % (11.5-14.5) Platelet Count 208 x10^3/uL (140-400) Neutrophils (%) (Auto) 75 % (31-73) Lymphocytes (%) (Auto) 13 % (24-48) Monocytes (%) (Auto) 12 % (0-9) Eosinophils (%) (Auto) 1 % (0-3) Basophils (%) (Auto) 1 % (0-3) Neutrophils # (Auto) 4.8 x10^3uL (1.8-7.7) Lymphocytes # (Auto) 0.8 x10^3/uL (1.0-4.8) Monocytes # (Auto) 0.8 x10^3/uL (0.0-1.1) Eosinophils # (Auto) 0.0 x10^3/uL (0.0-0.7) Basophils # (Auto) 0.0 x10^3/uL (0.0-0.2) Laboratory Tests Test 12/26/18 16:30 12/27/18 03:35 Sodium Level 131 mmol/L (136-145) Potassium Level 4.0 mmol/L (3.5-5.1) Chloride Level 96 mmol/L (98-107) Carbon Dioxide Level 23 mmol/L (21-32) Anion Gap 12 (6-14) Blood Urea Nitrogen 4 mg/dL (8-26) Creatinine 0.7 mg/dL (0.7-1.3) Estimated GFR (Cockcroft-Gault) 126.9 Glucose Level 157 mg/dL (70-99) Calcium Level 8.5 mg/dL (8.5-10.1) Magnesium Level 1.5 mg/dL (1.8-2.4) Troponin I Quantitative < 0.017 ng/mL (0.000-0.055) Thyroid Stimulating Hormone (TSH) 4.693 uIU/mL (0.358-3.74) White Blood Count 6.5 x10^3/uL (4.0-11.0) Red Blood Count 4.20 x10^6/uL (4.30-5.70) Hemoglobin 12.8 g/dL (13.0-17.5) Hematocrit 38.5 % (39.0-53.0) Mean Corpuscular Volume 92 fL (79-100) Mean Corpuscular Hemoglobin 31 pg (25-35) Mean Corpuscular Hemoglobin Concent 33 g/dL (31-37) Red Cell Distribution Width 18.8 % (11.5-14.5) Platelet Count 208 x10^3/uL (140-400) Neutrophils (%) (Auto) 75 % (31-73) Lymphocytes (%) (Auto) 13 % (24-48) Monocytes (%) (Auto) 12 % (0-9) Eosinophils (%) (Auto) 1 % (0-3) Basophils (%) (Auto) 1 % (0-3) Neutrophils # (Auto) 4.8 x10^3uL (1.8-7.7) Lymphocytes # (Auto) 0.8 x10^3/uL (1.0-4.8) Monocytes # (Auto) 0.8 x10^3/uL (0.0-1.1) Eosinophils # (Auto) 0.0 x10^3/uL (0.0-0.7) Basophils # (Auto) 0.0 x10^3/uL (0.0-0.2) Medications Active Scripts Medications Dose Route/Sig Max Daily Dose Days Date Category No Known Medications Prior To Admisstion (Info) Each 1 Each 1X 12/25/18 Reported Impression . D/W DR ANTHONY BRONCH today FULL CONSULT DICTATED GLEN MOLINA MD Dec 27, 2018 09:12
[2018-12-27 10:11] LABS: ALBUMIN 1.6 g/dL (3.4-5.0); ALBUMIN/GLOBULIN RATIO 0.3 (1.0-1.7); CALCIUM 8.3 mg/dL (8.5-10.1); CREATININE 0.6 mg/dL (0.7-1.3); GFR 151.6; POTASSIUM 4.2 mmol/L (3.5-5.1); TOTAL BILIRUBIN 0.9 mg/dL (0.2-1.0); TOTAL PROTEIN 7.8 g/dL (6.4-8.2)
--- NOTE | 2018-12-27 10:30 | PDOC ---
[facility] PROGRESS NOTE Chief Complaint Chief Complaint Cough Fevers Prior history of TB EtOH withdrawal History of Present Illness History of Present Illness Mr Rhodes is a 38 yo M w/ PMHx TB who presents to ER via with his brother for concerns of nonproductive cough and weight loss. Pt seen and examined this evening He still having alcohol withdrawal He is on a banana bag and when necessary benzos DW RN Having Tachycardia at times Bronch done yesterday Vitals Vitals Vital Signs Date Time Temp Pulse Resp B/P (MAP) Pulse Ox O2 Delivery O2 Flow Rate FiO2 12/27/18 07:35 102.0 109 20 119/86 (97) 97 Room Air 102.0 12/26/18 13:15 5 Physical Exam General: No acute distress, Other (awakens he is shaking) Heart: Regular rate, Normal S1 Lungs: Crackles Abdomen: Normal bowel sounds, Soft, No tenderness, No hepatosplenomegaly, No masses Extremities: No clubbing, No cyanosis, No edema, Normal pulses, No tenderness/swelling Skin: No rashes, No breakdown, No significant lesion Labs Labs: Laboratory Tests Test 12/26/18 16:30 12/27/18 03:35 12/27/18 08:53 Sodium Level 131 mmol/L (136-145) 129 mmol/L (136-145) Potassium Level 4.0 mmol/L (3.5-5.1) 4.2 mmol/L (3.5-5.1) Chloride Level 96 mmol/L (98-107) 96 mmol/L (98-107) Carbon Dioxide Level 23 mmol/L (21-32) 22 mmol/L (21-32) Anion Gap 12 (6-14) 11 (6-14) Blood Urea Nitrogen 4 mg/dL (8-26) 5 mg/dL (8-26) Creatinine 0.7 mg/dL (0.7-1.3) 0.6 mg/dL (0.7-1.3) Estimated GFR (Cockcroft-Gault) 126.9 151.6 Glucose Level 157 mg/dL (70-99) 91 mg/dL (70-99) Calcium Level 8.5 mg/dL (8.5-10.1) 8.3 mg/dL (8.5-10.1) Magnesium Level 1.5 mg/dL (1.8-2.4) 1.4 mg/dL (1.8-2.4) Troponin I Quantitative < 0.017 ng/mL (0.000-0.055) Thyroid Stimulating Hormone (TSH) 4.693 uIU/mL (0.358-3.74) White Blood Count 6.5 x10^3/uL (4.0-11.0) Red Blood Count 4.20 x10^6/uL (4.30-5.70) Hemoglobin 12.8 g/dL (13.0-17.5) Hematocrit 38.5 % (39.0-53.0) Mean Corpuscular Volume 92 fL (79-100) Mean Corpuscular Hemoglobin 31 pg (25-35) Mean Corpuscular Hemoglobin Concent 33 g/dL (31-37) Red Cell Distribution Width 18.8 % (11.5-14.5) Platelet Count 208 x10^3/uL (140-400) Neutrophils (%) (Auto) 75 % (31-73) Lymphocytes (%) (Auto) 13 % (24-48) Monocytes (%) (Auto) 12 % (0-9) Eosinophils (%) (Auto) 1 % (0-3) Basophils (%) (Auto) 1 % (0-3) Neutrophils # (Auto) 4.8 x10^3uL (1.8-7.7) Lymphocytes # (Auto) 0.8 x10^3/uL (1.0-4.8) Monocytes # (Auto) 0.8 x10^3/uL (0.0-1.1) Eosinophils # (Auto) 0.0 x10^3/uL (0.0-0.7) Basophils # (Auto) 0.0 x10^3/uL (0.0-0.2) BUN/Creatinine Ratio 8 (6-20) Total Bilirubin 0.9 mg/dL (0.2-1.0) Aspartate Amino Transf (AST/SGOT) 49 U/L (15-37) Alanine Aminotransferase (ALT/SGPT) 31 U/L (16-63) Alkaline Phosphatase 229 U/L (46-116) Total Protein 7.8 g/dL (6.4-8.2) Albumin 1.6 g/dL (3.4-5.0) Albumin/Globulin Ratio 0.3 (1.0-1.7) Assessment and Plan Assessmemt and Plan Problems Medical Problems: (1) Hyponatremia Status: Acute Cough Fevers Prior history of TB EtOH withdrawal Plan Await AFB smears Alcohol withdrawal protocol Discussed with case management team Hope to discharge home once the AFB is back DVT prophylaxis Full code Home meds Appreciate pulmonary and other subspecialist input Comment Review of Relevant I have reviewed the following items zoe (where applicable) has been applied. Labs Laboratory Tests Test 12/26/18 16:30 12/27/18 03:35 12/27/18 08:53 Sodium Level 131 mmol/L (136-145) 129 mmol/L (136-145) Potassium Level 4.0 mmol/L (3.5-5.1) 4.2 mmol/L (3.5-5.1) Chloride Level 96 mmol/L (98-107) 96 mmol/L (98-107) Carbon Dioxide Level 23 mmol/L (21-32) 22 mmol/L (21-32) Anion Gap 12 (6-14) 11 (6-14) Blood Urea Nitrogen 4 mg/dL (8-26) 5 mg/dL (8-26) Creatinine 0.7 mg/dL (0.7-1.3) 0.6 mg/dL (0.7-1.3) Estimated GFR (Cockcroft-Gault) 126.9 151.6 Glucose Level 157 mg/dL (70-99) 91 mg/dL (70-99) Calcium Level 8.5 mg/dL (8.5-10.1) 8.3 mg/dL (8.5-10.1) Magnesium Level 1.5 mg/dL (1.8-2.4) 1.4 mg/dL (1.8-2.4) Troponin I Quantitative < 0.017 ng/mL (0.000-0.055) Thyroid Stimulating Hormone (TSH) 4.693 uIU/mL (0.358-3.74) White Blood Count 6.5 x10^3/uL (4.0-11.0) Red Blood Count 4.20 x10^6/uL (4.30-5.70) Hemoglobin 12.8 g/dL (13.0-17.5) Hematocrit 38.5 % (39.0-53.0) Mean Corpuscular Volume 92 fL (79-100) Mean Corpuscular Hemoglobin 31 pg (25-35) Mean Corpuscular Hemoglobin Concent 33 g/dL (31-37) Red Cell Distribution Width 18.8 % (11.5-14.5) Platelet Count 208 x10^3/uL (140-400) Neutrophils (%) (Auto) 75 % (31-73) Lymphocytes (%) (Auto) 13 % (24-48) Monocytes (%) (Auto) 12 % (0-9) Eosinophils (%) (Auto) 1 % (0-3) Basophils (%) (Auto) 1 % (0-3) Neutrophils # (Auto) 4.8 x10^3uL (1.8-7.7) Lymphocytes # (Auto) 0.8 x10^3/uL (1.0-4.8) Monocytes # (Auto) 0.8 x10^3/uL (0.0-1.1) Eosinophils # (Auto) 0.0 x10^3/uL (0.0-0.7) Basophils # (Auto) 0.0 x10^3/uL (0.0-0.2) BUN/Creatinine Ratio 8 (6-20) Total Bilirubin 0.9 mg/dL (0.2-1.0) Aspartate Amino Transf (AST/SGOT) 49 U/L (15-37) Alanine Aminotransferase (ALT/SGPT) 31 U/L (16-63) Alkaline Phosphatase 229 U/L (46-116) Total Protein 7.8 g/dL (6.4-8.2) Albumin 1.6 g/dL (3.4-5.0) Albumin/Globulin Ratio 0.3 (1.0-1.7) Laboratory Tests Test 12/26/18 16:30 12/27/18 03:35 12/27/18 08:53 Sodium Level 131 mmol/L (136-145) 129 mmol/L (136-145) Potassium Level 4.0 mmol/L (3.5-5.1) 4.2 mmol/L (3.5-5.1) Chloride Level 96 mmol/L (98-107) 96 mmol/L (98-107) Carbon Dioxide Level 23 mmol/L (21-32) 22 mmol/L (21-32) Anion Gap 12 (6-14) 11 (6-14) Blood Urea Nitrogen 4 mg/dL (8-26) 5 mg/dL (8-26) Creatinine 0.7 mg/dL (0.7-1.3) 0.6 mg/dL (0.7-1.3) Estimated GFR (Cockcroft-Gault) 126.9 151.6 Glucose Level 157 mg/dL (70-99) 91 mg/dL (70-99) Calcium Level 8.5 mg/dL (8.5-10.1) 8.3 mg/dL (8.5-10.1) Magnesium Level 1.5 mg/dL (1.8-2.4) 1.4 mg/dL (1.8-2.4) Troponin I Quantitative < 0.017 ng/mL (0.000-0.055) Thyroid Stimulating Hormone (TSH) 4.693 uIU/mL (0.358-3.74) White Blood Count 6.5 x10^3/uL (4.0-11.0) Red Blood Count 4.20 x10^6/uL (4.30-5.70) Hemoglobin 12.8 g/dL (13.0-17.5) Hematocrit 38.5 % (39.0-53.0) Mean Corpuscular Volume 92 fL (79-100) Mean Corpuscular Hemoglobin 31 pg (25-35) Mean Corpuscular Hemoglobin Concent 33 g/dL (31-37) Red Cell Distribution Width 18.8 % (11.5-14.5) Platelet Count 208 x10^3/uL (140-400) Neutrophils (%) (Auto) 75 % (31-73) Lymphocytes (%) (Auto) 13 % (24-48) Monocytes (%) (Auto) 12 % (0-9) Eosinophils (%) (Auto) 1 % (0-3) Basophils (%) (Auto) 1 % (0-3) Neutrophils # (Auto) 4.8 x10^3uL (1.8-7.7) Lymphocytes # (Auto) 0.8 x10^3/uL (1.0-4.8) Monocytes # (Auto) 0.8 x10^3/uL (0.0-1.1) Eosinophils # (Auto) 0.0 x10^3/uL (0.0-0.7) Basophils # (Auto) 0.0 x10^3/uL (0.0-0.2) BUN/Creatinine Ratio 8 (6-20) Total Bilirubin 0.9 mg/dL (0.2-1.0) Aspartate Amino Transf (AST/SGOT) 49 U/L (15-37) Alanine Aminotransferase (ALT/SGPT) 31 U/L (16-63) Alkaline Phosphatase 229 U/L (46-116) Total Protein 7.8 g/dL (6.4-8.2) Albumin 1.6 g/dL (3.4-5.0) Albumin/Globulin Ratio 0.3 (1.0-1.7) Microbiology 12/25/18 Blood Culture - Preliminary, Resulted NO GROWTH AFTER 1 DAY 12/26/18 - Final, Complete Medications Current Medications Sodium Chloride 1,000 ml @ 1,000 mls/hr 1X ONCE IV Last administered on 12/24/18at 17:29; Start 12/24/18 at 17:15; Stop 12/24/18 at 18:14; Status DC Magnesium Sulfate 50 ml @ 25 mls/hr 1X ONCE IV Last administered on 12/24/18at 19:36; Start 12/24/18 at 19:00; Stop 12/24/18 at 20:59; Status DC Ceftriaxone Sodium (Rocephin) 1 gm 1X ONCE IVP Last administered on 12/24/18at 20:17; Start 12/24/18 at 19:45; Stop 12/24/18 at 19:46; Status DC Doxycycline Hyclate 100 mg/ Dextrose 100 ml @ 50 mls/hr 1X ONCE IV Last administered on 12/24/18at 20:18; Start 12/24/18 at 19:45; Stop 12/24/18 at 21:44; Status DC Sodium Chloride 1,000 ml @ 100 mls/hr 1X ONCE IV Last administered on 12/24/18at 20:17; Start 12/24/18 at 19:45; Stop 12/25/18 at 05:44; Status DC Magnesium Sulfate 50 ml @ 25 mls/hr 1X ONCE IV Last administered on 12/25/18at 08:39; Start 12/25/18 at 09:00; Stop 12/25/18 at 10:59; Status DC Potassium Chloride (Klor-Con) 20 meq [id number] PO Last administered on 12/27/18 09:11; Start 12/25/18 at 12:00 Multivitamins 10 ml/Thiamine HCl 100 mg/Folic Acid 1 mg/Sodium Chloride 1,011.2 ml @ 100 mls/ hr DAILY IV Last administered on 12/27/18 09:10; Start 12/25/18 at 12:30; Stop 12/29/18 at 19:07 Lorazepam (Ativan) 1 mg PRN Q1HR PRN PO For CIWA 8-14 Last administered on 12/26/18at 19:37; Start 12/25/18 at 11:30 Lorazepam (Ativan Inj) 0.5 mg PRN Q1HR PRN IV For CIWA 8-14; Start 12/25/18 at 11:30 Diphenhydramine HCl (Benadryl) 25 mg PRN Q15MIN PRN IVP EPS symptoms 2'Haldol admin; Start 12/25/18 at 11:30 Clonidine HCl (Catapres) 0.1 mg PRN Q1HR PRN PO SBP > 180 or DBP > 100, MRX3; Start 12/25/18 at 11:30 Magnesium Sulfate 50 ml @ 25 mls/hr 1X ONCE IV Last administered on 12/25/18 12:11; Start 12/25/18 at 11:45; Stop 12/25/18 at 13:44; Status DC Ceftriaxone Sodium (Rocephin) 2 gm Q24H IVP Last administered on 12/26/18 12:00; Start 12/25/18 at 12:00 Doxycycline Hyclate (Vibra-Tab) 100 mg BID PO Last administered on 12/27/18 09:10; Start 12/25/18 at 12:00 Acetaminophen (Tylenol) 650 mg PRN Q6HRS PRN PO FEVER Last administered on 12/27/18 09:10; Start 12/26/18 at 06:00 Albuterol Sulfate (Ventolin Neb Soln) 2.5 mg PRN 1X PRN NEB SHORTNESS OF BREATH Last administered on 12/26/18at 12:33; Start 12/26/18 at 10:00; Stop 12/26/18 at 18:00; Status DC Lidocaine HCl (Lidocaine 2% Viscous) 100 ml PRN 1X PRN MM MOUTH PAIN Last administered on 12/26/18at 12:33; Start 12/26/18 at 10:00; Stop 12/26/18 at 18:00; Status DC Lidocaine HCl (Lidocaine 1% 20ml Vial) 20 ml PRN 1X PRN INJ SEE COMMENTS Last administered on 12/26/18at 12:33; Start 12/26/18 at 10:00; Stop 12/26/18 at 18:00; Status DC Epinephrine HCl (Adrenalin) 1 mg PRN 1X PRN INJ SEE COMMENTS; Start 12/26/18 at 10:00; Stop 12/26/18 at 18:00; Status DC Lidocaine HCl 50 ml PRN 1X PRN MM SEE COMMENTS Last administered on 12/26/18at 12:32; Start 12/26/18 at 10:00; Stop 12/26/18 at 18:00; Status DC Epinephrine HCl (Adrenalin) 1 mg STK-MED ONCE .ROUTE ; Start 12/26/18 at 10:16; Stop 12/26/18 at 10:17; Status DC Lidocaine HCl (Lidocaine 1% 20ml Vial) 20 ml STK-MED ONCE .ROUTE ; Start 12/26/18 at 10:16; Stop 12/26/18 at 10:17; Status DC Lidocaine HCl (Lidocaine 2% Viscous) 100 ml STK-MED ONCE .ROUTE ; Start 12/26/18 at 10:16; Stop 12/26/18 at 10:17; Status DC Lidocaine HCl 50 ml STK-MED ONCE .ROUTE ; Start 12/26/18 at 10:16; Stop 12/26/18 at 10:17; Status DC Ringer's Solution 1,000 ml @ 75 mls/hr [id number] IV Last administered on 12/26/18at 19:30; Start 12/26/18 at 13:00 Propofol 20 ml @ As Directed STK-MED ONCE IV ; Start 12/26/18 at 12:51; Stop 12/26/18 at 12:52; Status DC Magnesium Sulfate 50 ml @ 25 mls/hr 1X ONCE IV Last administered on 12/26/18at 19:34; Start 12/26/18 at 18:30; Stop 12/26/18 at 20:29; Status DC Metoprolol Tartrate (Lopressor Vial) 5 mg 1X ONCE IVP Last administered on 12/26/18at 20:43; Start 12/26/18 at 20:15; Stop 12/26/18 at 20:20; Status DC Lorazepam (Ativan) 2 mg PRN Q1HR PRN PO WITHDRAWAL IRRITABILITY Last administered on 12/27/18at 05:10; Start 12/26/18 at 20:15 Active Scripts Active Reported No Known Medications Prior To Admisstion (Info) Each 1 Each 1X Vitals/I & O Vital Sign - Last 24 Hours 12/26/18 12/26/18 12/26/18 12/26/18 11:24 12:54 13:15 13:30 Temp 96.5 98.4 96.5 98.4 Pulse 85 85 110 99 Resp 16 16 20 B/P (MAP) 101/75 (84) 120/84 137/94 Pulse Ox 98 100 98 95 O2 Delivery Room Air Room Air Room Air O2 Flow Rate 5 12/26/18 12/26/18 12/26/18 12/26/18 13:45 14:00 15:45 19:20 Temp 98.6 102.2 98.6 102.2 Pulse 99 99 93 114 Resp 20 18 18 16 B/P (MAP) 136/86 126/88 146/107 (120) 110/75 (87) Pulse Ox 94 94 98 98 O2 Delivery Room Air Room Air Room Air Room Air 12/26/18 12/26/18 12/26/18 12/27/18 20:00 20:43 23:38 03:58 Temp 96.6 97.3 96.6 97.3 Pulse 160 86 86 Resp 18 16 B/P (MAP) 90/59 (69) 126/92 (103) Pulse Ox 98 100 O2 Delivery Room Air Room Air Room Air 12/27/18 07:35 Temp 102.0 102.0 Pulse 109 Resp 20 B/P (MAP) 119/86 (97) Pulse Ox 97 O2 Delivery Room Air Intake and Output 12/26/18 12/26/18 12/27/18 15:00 23:00 07:00 Intake Total 0 ml 550 ml 1000 ml Balance 0 ml 550 ml 1000 ml BAO WALKER K III DO Dec 27, 2018 10:30
--- NOTE | 2018-12-27 10:38 | PDOC ---
Infectious Disease Note Subjective Subjective Doing ok. No pain SOA or rash Fever he says is better Vital Sign Vital Signs Vital Signs Date Time Temp Pulse Resp B/P (MAP) Pulse Ox O2 Delivery O2 Flow Rate FiO2 12/27/18 07:35 102.0 109 20 119/86 (97) 97 Room Air 102.0 12/26/18 13:15 5 Physical Exam PHYSICAL EXAM CONSTITUTIONAL: He is sitting on side of bed. He appears comfortable. He is eating. HEENT: Pupils are equal and reactive. Oral cavity: Pharynx has some suspect dentition. NECK: Supple. LUNGS: CTA No gross wheeze. HEART: S1 and S2. Mild tachycardic. ABDOMEN: Soft and nontender. No guarding. EXTREMITIES: No clubbing or cyanosis. No gross edema. SKIN: Warm to touch without generalized signs of rash. NEUROLOGICAL: He is nonfocal. PSYCHIATRIC: Affect was appropriate. Labs Lab Laboratory Tests Test 12/26/18 16:30 12/27/18 03:35 12/27/18 08:53 Sodium Level 131 mmol/L (136-145) 129 mmol/L (136-145) Potassium Level 4.0 mmol/L (3.5-5.1) 4.2 mmol/L (3.5-5.1) Chloride Level 96 mmol/L (98-107) 96 mmol/L (98-107) Carbon Dioxide Level 23 mmol/L (21-32) 22 mmol/L (21-32) Anion Gap 12 (6-14) 11 (6-14) Blood Urea Nitrogen 4 mg/dL (8-26) 5 mg/dL (8-26) Creatinine 0.7 mg/dL (0.7-1.3) 0.6 mg/dL (0.7-1.3) Estimated GFR (Cockcroft-Gault) 126.9 151.6 Glucose Level 157 mg/dL (70-99) 91 mg/dL (70-99) Calcium Level 8.5 mg/dL (8.5-10.1) 8.3 mg/dL (8.5-10.1) Magnesium Level 1.5 mg/dL (1.8-2.4) 1.4 mg/dL (1.8-2.4) Troponin I Quantitative < 0.017 ng/mL (0.000-0.055) Thyroid Stimulating Hormone (TSH) 4.693 uIU/mL (0.358-3.74) White Blood Count 6.5 x10^3/uL (4.0-11.0) Red Blood Count 4.20 x10^6/uL (4.30-5.70) Hemoglobin 12.8 g/dL (13.0-17.5) Hematocrit 38.5 % (39.0-53.0) Mean Corpuscular Volume 92 fL (79-100) Mean Corpuscular Hemoglobin 31 pg (25-35) Mean Corpuscular Hemoglobin Concent 33 g/dL (31-37) Red Cell Distribution Width 18.8 % (11.5-14.5) Platelet Count 208 x10^3/uL (140-400) Neutrophils (%) (Auto) 75 % (31-73) Lymphocytes (%) (Auto) 13 % (24-48) Monocytes (%) (Auto) 12 % (0-9) Eosinophils (%) (Auto) 1 % (0-3) Basophils (%) (Auto) 1 % (0-3) Neutrophils # (Auto) 4.8 x10^3uL (1.8-7.7) Lymphocytes # (Auto) 0.8 x10^3/uL (1.0-4.8) Monocytes # (Auto) 0.8 x10^3/uL (0.0-1.1) Eosinophils # (Auto) 0.0 x10^3/uL (0.0-0.7) Basophils # (Auto) 0.0 x10^3/uL (0.0-0.2) BUN/Creatinine Ratio 8 (6-20) Total Bilirubin 0.9 mg/dL (0.2-1.0) Aspartate Amino Transf (AST/SGOT) 49 U/L (15-37) Alanine Aminotransferase (ALT/SGPT) 31 U/L (16-63) Alkaline Phosphatase 229 U/L (46-116) Total Protein 7.8 g/dL (6.4-8.2) Albumin 1.6 g/dL (3.4-5.0) Albumin/Globulin Ratio 0.3 (1.0-1.7) Micro IMPRESSION: 1. Suspected partially consolidated left upper lobe infiltrate with superimposed scattered bilateral nodular infiltrate. The possibility of pulmonary neoplasm is not excluded. Short-term radiographic or CT follow-up is indicated. 2. Prominent cardiac silhouette. Objective Assessment Fever Pneumonia s/p Bronch 12/26 Weight loss Hyponatremia Plan Plan of Care F/u Blood cults times 2 Cont Doxy and Rocephin Add Zyvox po Await bronch results from 12/26 May need ECHO F/u labs and cults REG ANTHONY MD Dec 27, 2018 10:37
--- NOTE | 2018-12-27 11:43 | PDOC2 ---
CARDIAC CONSULT DATE OF CONSULT Date of Consult DATE: 12/27/18 TIME: 11:42 REASON FOR CONSULT Reason for Consult: Sinus tachycardia REFERRING PHYSICIAN Referring Physician: Dr. Lara SOURCE Source: Chart review, Patient HISTORY OF PRESENT ILLNESS HISTORY OF PRESENT ILLNESS This is a 38 yo male from [facility], who presented secondary to nonproductive cough, shortness of breath, and weight loss. Telemetry noted with sinus tachycardia, which prompted this consult. Patient denies any chest pain, palpitations, dizziness, diaphoresis, or nausea/vomiting. Main complaints is persistent cough. History possible Tuberculosis 3-4 years ago. PAST MEDICAL HISTORY Cardiovascular: No pertinent hx Pulmonary: Other (? Tuberculosis) CENTRAL NERVOUS SYSTEM: Other (no pertinent hx) GI: No pertinent hx Heme/Onc: No pertinent hx Hepatobiliary: No pertinent hx Psych: No pertinent hx Musculoskeletal: Other (no pertinent hx) Infectious disease: No pertinent hx ENT: No pertinent hx Renal/: No pertinent hx Endocrine: No pertinent hx Dermatology: No pertinent hx PAST SURGICAL HISTORY Past Surgical History: No pertinent history FAMILY HISTORY Family History: Other (no pertinent hx) SOCIAL HISTORY Smoke: No ALCOHOL: occassional Drugs: None Lives: with Family CURRENT MEDICATIONS CURRENT MEDICATIONS Current Medications Medications (Trade) Dose Ordered Sig/Carlos Route PRN Reason Start Time Stop Time Status Last Admin Dose Admin Ringer's Solution 1,000 ml @ 75 mls/hr [id number] IV 12/26/18 13:00 12/26/18 19:30 Magnesium Sulfate 50 ml @ 25 mls/hr 1X ONCE IV 12/26/18 18:30 12/26/18 20:29 DC 12/26/18 19:34 Metoprolol Tartrate (Lopressor Vial) 5 mg 1X ONCE IVP 12/26/18 20:15 12/26/18 20:20 DC 12/26/18 20:43 Lorazepam (Ativan) 2 mg PRN Q1HR PRN PO WITHDRAWAL IRRITABILITY 12/26/18 20:15 12/27/18 05:10 ALLERGIES ALLERGIES: Coded Allergies: No Known Drug Allergies (Unverified , 12/24/18) ROS Review of System 14 point ROS conducted with pertinent positives noted above in HPI. PHYSICAL EXAM General: Alert, Oriented X3, Cooperative, No acute distress HEENT: Atraumatic, Mucous membr. moist/pink Lungs: Clear to auscultation, Other (crackles) Heart: Regular rate (SR/ST), Normal S1, Normal S2 Abdomen: Soft Extremities: No edema, Normal pulses Skin: No significant lesion Neuro: Normal speech, Sensation intact Psych/Mental Status: Mental status NL, Mood NL MUSCULOSKELETAL: No deformity VITALS VITALS Vital Signs Date Time Temp Pulse Resp B/P (MAP) Pulse Ox O2 Delivery O2 Flow Rate FiO2 12/27/18 07:35 102.0 109 20 119/86 (97) 97 Room Air 102.0 12/26/18 13:15 5 LABS Lab: Laboratory Tests Test 12/26/18 16:30 12/27/18 03:35 12/27/18 08:53 Sodium Level 131 mmol/L (136-145) 129 mmol/L (136-145) Potassium Level 4.0 mmol/L (3.5-5.1) 4.2 mmol/L (3.5-5.1) Chloride Level 96 mmol/L (98-107) 96 mmol/L (98-107) Carbon Dioxide Level 23 mmol/L (21-32) 22 mmol/L (21-32) Anion Gap 12 (6-14) 11 (6-14) Blood Urea Nitrogen 4 mg/dL (8-26) 5 mg/dL (8-26) Creatinine 0.7 mg/dL (0.7-1.3) 0.6 mg/dL (0.7-1.3) Estimated GFR (Cockcroft-Gault) 126.9 151.6 Glucose Level 157 mg/dL (70-99) 91 mg/dL (70-99) Calcium Level 8.5 mg/dL (8.5-10.1) 8.3 mg/dL (8.5-10.1) Magnesium Level 1.5 mg/dL (1.8-2.4) 1.4 mg/dL (1.8-2.4) Troponin I Quantitative < 0.017 ng/mL (0.000-0.055) Thyroid Stimulating Hormone (TSH) 4.693 uIU/mL (0.358-3.74) White Blood Count 6.5 x10^3/uL (4.0-11.0) Red Blood Count 4.20 x10^6/uL (4.30-5.70) Hemoglobin 12.8 g/dL (13.0-17.5) Hematocrit 38.5 % (39.0-53.0) Mean Corpuscular Volume 92 fL (79-100) Mean Corpuscular Hemoglobin 31 pg (25-35) Mean Corpuscular Hemoglobin Concent 33 g/dL (31-37) Red Cell Distribution Width 18.8 % (11.5-14.5) Platelet Count 208 x10^3/uL (140-400) Neutrophils (%) (Auto) 75 % (31-73) Lymphocytes (%) (Auto) 13 % (24-48) Monocytes (%) (Auto) 12 % (0-9) Eosinophils (%) (Auto) 1 % (0-3) Basophils (%) (Auto) 1 % (0-3) Neutrophils # (Auto) 4.8 x10^3uL (1.8-7.7) Lymphocytes # (Auto) 0.8 x10^3/uL (1.0-4.8) Monocytes # (Auto) 0.8 x10^3/uL (0.0-1.1) Eosinophils # (Auto) 0.0 x10^3/uL (0.0-0.7) Basophils # (Auto) 0.0 x10^3/uL (0.0-0.2) BUN/Creatinine Ratio 8 (6-20) Total Bilirubin 0.9 mg/dL (0.2-1.0) Aspartate Amino Transf (AST/SGOT) 49 U/L (15-37) Alanine Aminotransferase (ALT/SGPT) 31 U/L (16-63) Alkaline Phosphatase 229 U/L (46-116) Total Protein 7.8 g/dL (6.4-8.2) Albumin 1.6 g/dL (3.4-5.0) Albumin/Globulin Ratio 0.3 (1.0-1.7) ASSESSMENT/PLAN ASSESSMENT/PLAN 1. Pneumonia 2. Fevers 3. Sinus tachycardia; reactive secondary to above. Better controlled 4. Hypomagnesemia 5. Hyponatremia 6. ? H/o Tuberculosis 7. Hypothyroidism Recommendations Replace Mg Ongoing IVFs Metoprolol IV PRN for tachycardia Supportive care Follow pulmonary and ID recs YNES MERCER APRN Dec 27, 2018 11:43
[2018-12-27] MEDS: LINEZOLID 600 MG TABLET PO SCH ×2 (11:58→21:28)
[2018-12-27] MEDS ORDERED: MAGNESIUM SULFATE 2GM 50 ML IV ONE (12:30)
[2018-12-27] MEDS: cefTRIAXone IV Push 2 GM VIAL. IVP SCH (13:17)
[2018-12-27] MEDS ORDERED: METOPROLOL TARTRATE 5 MG/5 ML VIAL. IVP PRN (15:45)
[2018-12-27] MEDS: LACTOBACILLUS RHAMNOSUS GG 1 CAPSULE. PO SCH (21:28)
[2018-12-27] MEDS: IV RINGERS,LACTATED 1000ML 1,000 ML IV SCH (21:29)
[2018-12-28 03:00] VITALS: BP 120/82
[2018-12-28] MEDS: IV RINGERS,LACTATED 1000ML 1,000 ML IV SCH (06:19)
[2018-12-28 07:45] VITALS: BP 120/88
[2018-12-28] MEDS: LACTOBACILLUS RHAMNOSUS GG 1 CAPSULE. PO SCH ×2 (09:39→20:31)
[2018-12-28] MEDS: LINEZOLID 600 MG TABLET PO SCH ×2 (09:39→20:31)
[2018-12-28] MEDS: DOXYCYCLINE HYCLATE 100 MG TABLET PO SCH ×2 (09:40→20:31)
[2018-12-28] MEDS: POTASSIUM CHLORIDE 20 MEQ TABLET.ER. PO SCH (09:40)
[2018-12-28] MEDS: MULTIVIT INFUSN,ADULT 4,VIT K 10 ML, THIAMINE INJ 100 MG, FOLIC ACID INJ 1 MG in IV NOR... IV SCH (09:52)
[2018-12-28 11:45] VITALS: BP 105/70
--- NOTE | 2018-12-28 12:07 | PATHOLOGY ---
Note [facility] Accession Number: [id number] TESTS RESULT FLAG UNITS REF RANGE LAB Clinician Provided Cytology Information No. of containers..01 Other (Miscellaneous) Source: RT LUNG BAL DIAGNOSIS: RT LUNG BAL NEGATIVE FOR MALIGNANT CELLS. FOCALLY REACTIVE BRONCHIAL EPITHELIAL CELLS AND MACROPHAGES PRESENT. SILVER METHENAMINE STAINED SMEARS ARE NEGATIVE FOR PNEUMOCYSTIS AND FUNGAL ORGANISMS. Signed out by: 02 Leo Doherty MD, Pathologist NPI- [id number] Performed by: Laly Serra, Mediation Commissioner ([facility]) Gross description: 01 15ML, COLORLESS, CLOUDY /LCS FLAG LEGEND: L-Low Normal,H-High Normal,LL-Alert Low,HH-Alert High <-Panic Low,>-Panic High,A-Abnormal,AA-Critical Abnormal Performed at: [address] [address] Herbie Soni MD, 02 [facility] [address] [place] [address] Leo Doherty MD, Specimen Comment: A courtesy copy of this report has been sent to Specimen Comment: [phone]. Specimen Comment: [id number] Specimen Comment: Report sent to Performed at: [address] [place] [address] [address], [place], [place] [id number] MD Herbie Soni MD Phone: [phone]
--- NOTE | 2018-12-28 12:07 | PATHOLOGY ---
Note [facility] Accession Number: [id number] TESTS RESULT FLAG UNITS REF RANGE LAB Clinician Provided Cytology Information No. of containers..01 Other (Miscellaneous) Source: LT LUNG BAL DIAGNOSIS: LT LUNG BAL NEGATIVE FOR MALIGNANT CELLS. FOCALLY REACTIVE BRONCHIAL EPITHELIAL CELLS AND MACROPHAGES PRESENT. SILVER METHENAMINE STAINED SMEARS ARE NEGATIVE FOR PNEUMOCYSTIS AND FUNGAL ORGANISMS. Signed out by: Leo Doherty MD, Pathologist NPI- [id number] Performed by: Laly Serra, Change Coordinator ([facility]) Gross description: 01 13ML, COLORLESS, CLOUDY /LCS FLAG LEGEND: L-Low Normal,H-High Normal,LL-Alert Low,HH-Alert High <-Panic Low,>-Panic High,A-Abnormal,AA-Critical Abnormal Performed at: [address] [place] [address] Herbie Soni MD, 02 [facility] [address] [place] [address] Leo Doherty MD, Specimen Comment: A courtesy copy of this report has been sent to Specimen Comment: [phone]. Specimen Comment: [id number] Specimen Comment: Report sent to DR MOLINA Performed at: [address], [place], [place] [id number] MD Herbie Soni MD Phone: [phone]
--- NOTE | 2018-12-28 12:44 | PDOC ---
Infectious Disease Note Subjective Subjective Doing ok. No pain SOA or rash Fever he says is better. less cough ROS ROS o/w neg Vital Sign Vital Signs Vital Signs Date Time Temp Pulse Resp B/P (MAP) Pulse Ox O2 Delivery O2 Flow Rate FiO2 12/28/18 07:45 96.8 92 18 120/88 (99) 100 Room Air 96.8 12/27/18 20:00 5.0 Physical Exam PHYSICAL EXAM CONSTITUTIONAL: He is lying in bed He appears comfortable. HEENT: Pupils are equal and reactive. Oral cavity: Pharynx has some suspect dentition. NECK: Supple. LUNGS: CTA No gross wheeze. HEART: S1 and S2. Mild tachycardic. ABDOMEN: Soft and nontender. No guarding. EXTREMITIES: No clubbing or cyanosis. No gross edema. SKIN: Warm to touch without generalized signs of rash. NEUROLOGICAL: He is nonfocal. PSYCHIATRIC: Affect was appropriate. Labs Micro IMPRESSION: 1. Suspected partially consolidated left upper lobe infiltrate with superimposed scattered bilateral nodular infiltrate. The possibility of pulmonary neoplasm is not excluded. Short-term radiographic or CT follow-up is indicated. 2. Prominent cardiac silhouette. Objective Assessment Fever - curve improving Pneumonia s/p Bronch 12/26 AFB neg times one Weight loss Hyponatremia Plan Plan of Care F/u Blood cults times 2 Cont Doxy and Rocephin Added Zyvox po 12/27 Await bronch results from 12/26 May need ECHO F/u labs and cults REG ANTHONY MD Dec 28, 2018 12:44
[2018-12-28] MEDS: cefTRIAXone IV Push 2 GM VIAL. IVP SCH (13:41)
--- NOTE | 2018-12-28 14:35 | PDOC ---
PROGRESS NOTES Chief Complaint Chief Complaint Cough Fevers Prior history of TB EtOH withdrawal History of Present Illness History of Present Illness Mr Rhodes is a 38 yo M w/ PMHx TB who presents to ER via with his brother for concerns of nonproductive cough and weight loss. 25 obs in 1 month Pt seen and examined NO signs of having alcohol withdrawal He is on a banana bag and when necessary benzos DW RN Having Tachycardia at times Bronch done, AFB pending, the rest is negative PLAN: Cont droplet isolation for now until AFB via bronc has been read as negative Follow cultures bronc and cultures Continue IV antibiotic per ID Discussed with RN at bedside I think we can do MVI thiamine folate all oral - may dc banana bag after this dose Vitals Vitals Vital Signs Date Time Temp Pulse Resp B/P (MAP) Pulse Ox O2 Delivery O2 Flow Rate FiO2 12/28/18 11:45 97.5 84 18 105/70 (82) 99 Room Air 97.5 12/27/18 20:00 5.0 Physical Exam Physical Exam CONSTITUTIONAL: He is lying in bed He appears comfortable. HEENT: Pupils are equal and reactive. Oral cavity: Pharynx has some suspect dentition. NECK: Supple. LUNGS: CTA No gross wheeze. HEART: S1 and S2. Mild tachycardic. ABDOMEN: Soft and nontender. No guarding. EXTREMITIES: No clubbing or cyanosis. No gross edema. SKIN: Warm to touch without generalized signs of rash. NEUROLOGICAL: He is nonfocal. PSYCHIATRIC: Affect was appropriate. General: Alert, Oriented X3, Cooperative, No acute distress Heart: Regular rate (SR/ST), Normal S1, Normal S2 Lungs: Crackles Abdomen: Soft Extremities: No clubbing, No cyanosis, No edema, Normal pulses Skin: No rashes, No breakdown, No significant lesion Review of Systems Review of Systems A 14 point ROS was completed with the following noted as positive: Other systems reviewed and negative. \CONSTITUTIONAL: No fever or chills EYES: No recent changes SKIN: No rash or itching CARDIOVASCULAR: No chest pain, syncope, palpitations, or edema RESPIRATORY: No SOB or cough GASTROINTESTINAL: No nausea, vomiting or abdominal pain NEUROLOGICAL: No headaches or weakness ENDOCRINE: No cold or heat intolerance GENITOURINARY: No urgency or frequency of urination MUSCULOSKELETAL: No back pain or joint pain LYMPHATICS: No enlarged lymph nodes PSYCHIATRIC: No anxiety or depression Assessment and Plan Assessmemt and Plan Problems Medical Problems: (1) Hyponatremia Status: Acute Comment Review of Relevant I have reviewed the following items zoe (where applicable) has been applied. Labs Laboratory Tests Test 12/26/18 16:30 12/27/18 03:35 12/27/18 08:53 Sodium Level 131 mmol/L (136-145) 129 mmol/L (136-145) Potassium Level 4.0 mmol/L (3.5-5.1) 4.2 mmol/L (3.5-5.1) Chloride Level 96 mmol/L (98-107) 96 mmol/L (98-107) Carbon Dioxide Level 23 mmol/L (21-32) 22 mmol/L (21-32) Anion Gap 12 (6-14) 11 (6-14) Blood Urea Nitrogen 4 mg/dL (8-26) 5 mg/dL (8-26) Creatinine 0.7 mg/dL (0.7-1.3) 0.6 mg/dL (0.7-1.3) Estimated GFR (Cockcroft-Gault) 126.9 151.6 Glucose Level 157 mg/dL (70-99) 91 mg/dL (70-99) Calcium Level 8.5 mg/dL (8.5-10.1) 8.3 mg/dL (8.5-10.1) Magnesium Level 1.5 mg/dL (1.8-2.4) 1.4 mg/dL (1.8-2.4) Troponin I Quantitative < 0.017 ng/mL (0.000-0.055) Thyroid Stimulating Hormone (TSH) 4.693 uIU/mL (0.358-3.74) White Blood Count 6.5 x10^3/uL (4.0-11.0) Red Blood Count 4.20 x10^6/uL (4.30-5.70) Hemoglobin 12.8 g/dL (13.0-17.5) Hematocrit 38.5 % (39.0-53.0) Mean Corpuscular Volume 92 fL (79-100) Mean Corpuscular Hemoglobin 31 pg (25-35) Mean Corpuscular Hemoglobin Concent 33 g/dL (31-37) Red Cell Distribution Width 18.8 % (11.5-14.5) Platelet Count 208 x10^3/uL (140-400) Neutrophils (%) (Auto) 75 % (31-73) Lymphocytes (%) (Auto) 13 % (24-48) Monocytes (%) (Auto) 12 % (0-9) Eosinophils (%) (Auto) 1 % (0-3) Basophils (%) (Auto) 1 % (0-3) Neutrophils # (Auto) 4.8 x10^3uL (1.8-7.7) Lymphocytes # (Auto) 0.8 x10^3/uL (1.0-4.8) Monocytes # (Auto) 0.8 x10^3/uL (0.0-1.1) Eosinophils # (Auto) 0.0 x10^3/uL (0.0-0.7) Basophils # (Auto) 0.0 x10^3/uL (0.0-0.2) BUN/Creatinine Ratio 8 (6-20) Total Bilirubin 0.9 mg/dL (0.2-1.0) Aspartate Amino Transf (AST/SGOT) 49 U/L (15-37) Alanine Aminotransferase (ALT/SGPT) 31 U/L (16-63) Alkaline Phosphatase 229 U/L (46-116) Total Protein 7.8 g/dL (6.4-8.2) Albumin 1.6 g/dL (3.4-5.0) Albumin/Globulin Ratio 0.3 (1.0-1.7) Microbiology 12/25/18 Blood Culture - Preliminary, Resulted NO GROWTH AFTER 2 DAYS 12/26/18 AFB Specimen Processing Tissue - Final, Resulted 12/26/18 Acid Fast Bacilli Culture, Resulted Pending 12/26/18 Gram Stain - Final, Resulted 12/26/18 Fungal Culture, Resulted Pending 12/26/18 Fungal Culture Result 1, Resulted Pending Medications Current Medications Sodium Chloride 1,000 ml @ 1,000 mls/hr 1X ONCE IV Last administered on 12/24/18at 17:29; Start 12/24/18 at 17:15; Stop 12/24/18 at 18:14; Status DC Magnesium Sulfate 50 ml @ 25 mls/hr 1X ONCE IV Last administered on 12/24/18at 19:36; Start 12/24/18 at 19:00; Stop 12/24/18 at 20:59; Status DC Ceftriaxone Sodium (Rocephin) 1 gm 1X ONCE IVP Last administered on 12/24/18at 20:17; Start 12/24/18 at 19:45; Stop 12/24/18 at 19:46; Status DC Doxycycline Hyclate 100 mg/ Dextrose 100 ml @ 50 mls/hr 1X ONCE IV Last administered on 12/24/18 20:18; Start 12/24/18 at 19:45; Stop 12/24/18 at 21:44; Status DC Sodium Chloride 1,000 ml @ 100 mls/hr 1X ONCE IV Last administered on 12/24/18at 20:17; Start 12/24/18 at 19:45; Stop 12/25/18 at 05:44; Status DC Magnesium Sulfate 50 ml @ 25 mls/hr 1X ONCE IV Last administered on 12/25/18at 08:39; Start 12/25/18 at 09:00; Stop 12/25/18 at 10:59; Status DC Potassium Chloride (Klor-Con) 20 meq [id number] PO Last administered on 12/28/18at 09:40; Start 12/25/18 at 12:00 Multivitamins 10 ml/Thiamine HCl 100 mg/Folic Acid 1 mg/Sodium Chloride 1,011.2 ml @ 100 mls/ hr DAILY IV Last administered on 12/28/18at 09:52; Start 12/25/18 at 12:30; Stop 12/29/18 at 19:07 Lorazepam (Ativan) 1 mg PRN Q1HR PRN PO For CIWA 8-14 Last administered on 12/26/18at 19:37; Start 12/25/18 at 11:30 Lorazepam (Ativan Inj) 0.5 mg PRN Q1HR PRN IV For CIWA 8-14 Last administered on 12/27/18at 11:59; Start 12/25/18 at 11:30 Diphenhydramine HCl (Benadryl) 25 mg PRN Q15MIN PRN IVP EPS symptoms 2'Haldol admin; Start 12/25/18 at 11:30 Clonidine HCl (Catapres) 0.1 mg PRN Q1HR PRN PO SBP > 180 or DBP > 100, MRX3; Start 12/25/18 at 11:30 Magnesium Sulfate 50 ml @ 25 mls/hr 1X ONCE IV Last administered on 12/25/18at 12:11; Start 12/25/18 at 11:45; Stop 12/25/18 at 13:44; Status DC Ceftriaxone Sodium (Rocephin) 2 gm Q24H IVP Last administered on 12/28/18 13:41; Start 12/25/18 at 12:00 Doxycycline Hyclate (Vibra-Tab) 100 mg BID PO Last administered on 12/28/18 09:40; Start 12/25/18 at 12:00 Acetaminophen (Tylenol) 650 mg PRN Q6HRS PRN PO FEVER Last administered on 12/27/18 21:28; Start 12/26/18 at 06:00 Albuterol Sulfate (Ventolin Neb Soln) 2.5 mg PRN 1X PRN NEB SHORTNESS OF BREATH Last administered on 12/26/18 12:33; Start 12/26/18 at 10:00; Stop 12/26/18 at 18:00; Status DC Lidocaine HCl (Lidocaine 2% Viscous) 100 ml PRN 1X PRN MM MOUTH PAIN Last administered on 12/26/18 12:33; Start 12/26/18 at 10:00; Stop 12/26/18 at 18:00; Status DC Lidocaine HCl (Lidocaine 1% 20ml Vial) 20 ml PRN 1X PRN INJ SEE COMMENTS Last administered on 12/26/18 12:33; Start 12/26/18 at 10:00; Stop 12/26/18 at 18:00; Status DC Epinephrine HCl (Adrenalin) 1 mg PRN 1X PRN INJ SEE COMMENTS; Start 12/26/18 at 10:00; Stop 12/26/18 at 18:00; Status DC Lidocaine HCl 50 ml PRN 1X PRN MM SEE COMMENTS Last administered on 12/26/18at 12:32; Start 12/26/18 at 10:00; Stop 12/26/18 at 18:00; Status DC Epinephrine HCl (Adrenalin) 1 mg STK-MED ONCE .ROUTE ; Start 12/26/18 at 10:16; Stop 12/26/18 at 10:17; Status DC Lidocaine HCl (Lidocaine 1% 20ml Vial) 20 ml STK-MED ONCE .ROUTE ; Start 12/26/18 at 10:16; Stop 12/26/18 at 10:17; Status DC Lidocaine HCl (Lidocaine 2% Viscous) 100 ml STK-MED ONCE .ROUTE ; Start 12/26/18 at 10:16; Stop 12/26/18 at 10:17; Status DC Lidocaine HCl 50 ml STK-MED ONCE .ROUTE ; Start 12/26/18 at 10:16; Stop 12/26/18 at 10:17; Status DC Ringer's Solution 1,000 ml @ 75 mls/hr [id number] IV Last administered on 12/28/18at 06:19; Start 12/26/18 at 13:00; Stop 12/28/18 at 13:16; Status DC Propofol 20 ml @ As Directed STK-MED ONCE IV ; Start 12/26/18 at 12:51; Stop 12/26/18 at 12:52; Status DC Magnesium Sulfate 50 ml @ 25 mls/hr 1X ONCE IV Last administered on 12/26/18at 19:34; Start 12/26/18 at 18:30; Stop 12/26/18 at 20:29; Status DC Metoprolol Tartrate (Lopressor Vial) 5 mg 1X ONCE IVP Last administered on 12/26/18at 20:43; Start 12/26/18 at 20:15; Stop 12/26/18 at 20:20; Status DC Lorazepam (Ativan) 2 mg PRN Q1HR PRN PO WITHDRAWAL IRRITABILITY Last administered on 12/27/18at 05:10; Start 12/26/18 at 20:15 Linezolid (Zyvox) 600 mg BID PO Last administered on 12/28/18at 09:39; Start 12/27/18 at 11:00 Magnesium Sulfate 50 ml @ 25 mls/hr 1X ONCE IV Last administered on 12/27/18at 13:16; Start 12/27/18 at 12:30; Stop 12/27/18 at 14:29; Status DC Lactobacillus Rhamnosus (Culturelle) 1 cap BID PO Last administered on 12/28/18at 09:39; Start 12/27/18 at 21:00 Metoprolol Tartrate (Lopressor Vial) 5 mg PRN Q5MIN PRN IVP TACHYCARDIA; Start 12/27/18 at 15:45 Active Scripts Active Reported No Known Medications Prior To Admisstion (Info) Each 1 Each 1X Vitals/I & O Vital Sign - Last 24 Hours 12/27/18 12/27/18 12/27/18 12/27/18 15:10 16:13 19:30 20:00 Temp 95.8 100.5 95.8 100.5 Pulse 84 98 105 Resp 20 16 16 B/P (MAP) 95/62 (73) 102/75 (84) 118/89 (99) Pulse Ox 98 99 O2 Delivery Room Air Room Air Room Air Room Air O2 Flow Rate 5.0 12/27/18 12/28/18 12/28/18 12/28/18 23:00 03:00 07:45 08:00 Temp 97.5 95.1 96.8 97.5 95.1 96.8 Pulse 84 80 92 Resp 18 16 18 B/P (MAP) 106/72 (83) 120/82 (95) 120/88 (99) Pulse Ox 98 100 O2 Delivery Room Air Room Air Room Air Room Air 12/28/18 11:45 Temp 97.5 97.5 Pulse 84 Resp 18 B/P (MAP) 105/70 (82) Pulse Ox 99 O2 Delivery Room Air Intake and Output 12/27/18 12/27/18 12/28/18 15:00 23:00 07:00 Intake Total 650 ml 800 ml Balance 650 ml 800 ml JD BURROWS MD Dec 28, 2018 14:34
[2018-12-28 15:45] VITALS: BP 120/85
--- NOTE | 2018-12-28 15:45 | PDOC3 ---
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 Final Diagnosis Problems Medical Problems: (1) Hyponatremia Status: Acute Brief Hospital Course Allergies Allergies Coded Allergies Type Severity Reaction Last Updated Verified No Known Drug Allergies 12/24/18 No Vital Signs Vital Signs Date Time Temp Pulse Resp B/P (MAP) Pulse Ox O2 Delivery O2 Flow Rate FiO2 12/28/18 11:45 97.5 84 18 105/70 (82) 99 Room Air 97.5 12/27/18 20:00 5.0 Lab Results Laboratory Tests Test 12/26/18 16:30 12/27/18 03:35 12/27/18 08:53 Sodium Level 131 mmol/L (136-145) 129 mmol/L (136-145) Potassium Level 4.0 mmol/L (3.5-5.1) 4.2 mmol/L (3.5-5.1) Chloride Level 96 mmol/L (98-107) 96 mmol/L (98-107) Carbon Dioxide Level 23 mmol/L (21-32) 22 mmol/L (21-32) Anion Gap 12 (6-14) 11 (6-14) Blood Urea Nitrogen 4 mg/dL (8-26) 5 mg/dL (8-26) Creatinine 0.7 mg/dL (0.7-1.3) 0.6 mg/dL (0.7-1.3) Estimated GFR (Cockcroft-Gault) 126.9 151.6 Glucose Level 157 mg/dL (70-99) 91 mg/dL (70-99) Calcium Level 8.5 mg/dL (8.5-10.1) 8.3 mg/dL (8.5-10.1) Magnesium Level 1.5 mg/dL (1.8-2.4) 1.4 mg/dL (1.8-2.4) Troponin I Quantitative < 0.017 ng/mL (0.000-0.055) Thyroid Stimulating Hormone (TSH) 4.693 uIU/mL (0.358-3.74) White Blood Count 6.5 x10^3/uL (4.0-11.0) Red Blood Count 4.20 x10^6/uL (4.30-5.70) Hemoglobin 12.8 g/dL (13.0-17.5) Hematocrit 38.5 % (39.0-53.0) Mean Corpuscular Volume 92 fL (79-100) Mean Corpuscular Hemoglobin 31 pg (25-35) Mean Corpuscular Hemoglobin Concent 33 g/dL (31-37) Red Cell Distribution Width 18.8 % (11.5-14.5) Platelet Count 208 x10^3/uL (140-400) Neutrophils (%) (Auto) 75 % (31-73) Lymphocytes (%) (Auto) 13 % (24-48) Monocytes (%) (Auto) 12 % (0-9) Eosinophils (%) (Auto) 1 % (0-3) Basophils (%) (Auto) 1 % (0-3) Neutrophils # (Auto) 4.8 x10^3uL (1.8-7.7) Lymphocytes # (Auto) 0.8 x10^3/uL (1.0-4.8) Monocytes # (Auto) 0.8 x10^3/uL (0.0-1.1) Eosinophils # (Auto) 0.0 x10^3/uL (0.0-0.7) Basophils # (Auto) 0.0 x10^3/uL (0.0-0.2) BUN/Creatinine Ratio 8 (6-20) Total Bilirubin 0.9 mg/dL (0.2-1.0) Aspartate Amino Transf (AST/SGOT) 49 U/L (15-37) Alanine Aminotransferase (ALT/SGPT) 31 U/L (16-63) Alkaline Phosphatase 229 U/L (46-116) Total Protein 7.8 g/dL (6.4-8.2) Albumin 1.6 g/dL (3.4-5.0) Albumin/Globulin Ratio 0.3 (1.0-1.7) Brief Hospital Course Mr. 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 Bronchoscopy done, AFB negative. Comanagement pulmonary ID. Okay for home today by mouth Augmentin 2 Notes today, patient seen and examined Procedures performed bronchoscopy by pulmonary Consults performed pulmonary/ID Discharge Information Condition at Discharge: Improved, Stable Disposition/Orders: D/C to Home Scheduled Info (No Known Medications Prior To Admisstion) Each, 1 EACH 1X for no meds reported, (Reported) Entered as Reported by: SUSHMA GIPSON on 12/25/1832 Last Action: New Order on 12/25/1832 by JD RICHARD MD Dec 28, 2018 15:45
--- NOTE | 2018-12-28 15:51 | PDOC ---
PULMONARY PROGRESS NOTES Subjective PT NOT IN DISTRESS Vitals Vital Signs Date Time Temp Pulse Resp B/P (MAP) Pulse Ox O2 Delivery O2 Flow Rate FiO2 12/28/18 11:45 97.5 84 18 105/70 (82) 99 Room Air 97.5 12/27/18 20:00 5.0 Lungs: Crackles Cardiovascular: S1, S2 Abdomen: Soft Neuro Exam: Alert Extremities: No Edema Skin: Warm Labs Laboratory Tests Test 12/26/18 16:30 12/27/18 03:35 12/27/18 08:53 Sodium Level 131 mmol/L (136-145) 129 mmol/L (136-145) Potassium Level 4.0 mmol/L (3.5-5.1) 4.2 mmol/L (3.5-5.1) Chloride Level 96 mmol/L (98-107) 96 mmol/L (98-107) Carbon Dioxide Level 23 mmol/L (21-32) 22 mmol/L (21-32) Anion Gap 12 (6-14) 11 (6-14) Blood Urea Nitrogen 4 mg/dL (8-26) 5 mg/dL (8-26) Creatinine 0.7 mg/dL (0.7-1.3) 0.6 mg/dL (0.7-1.3) Estimated GFR (Cockcroft-Gault) 126.9 151.6 Glucose Level 157 mg/dL (70-99) 91 mg/dL (70-99) Calcium Level 8.5 mg/dL (8.5-10.1) 8.3 mg/dL (8.5-10.1) Magnesium Level 1.5 mg/dL (1.8-2.4) 1.4 mg/dL (1.8-2.4) Troponin I Quantitative < 0.017 ng/mL (0.000-0.055) Thyroid Stimulating Hormone (TSH) 4.693 uIU/mL (0.358-3.74) White Blood Count 6.5 x10^3/uL (4.0-11.0) Red Blood Count 4.20 x10^6/uL (4.30-5.70) Hemoglobin 12.8 g/dL (13.0-17.5) Hematocrit 38.5 % (39.0-53.0) Mean Corpuscular Volume 92 fL (79-100) Mean Corpuscular Hemoglobin 31 pg (25-35) Mean Corpuscular Hemoglobin Concent 33 g/dL (31-37) Red Cell Distribution Width 18.8 % (11.5-14.5) Platelet Count 208 x10^3/uL (140-400) Neutrophils (%) (Auto) 75 % (31-73) Lymphocytes (%) (Auto) 13 % (24-48) Monocytes (%) (Auto) 12 % (0-9) Eosinophils (%) (Auto) 1 % (0-3) Basophils (%) (Auto) 1 % (0-3) Neutrophils # (Auto) 4.8 x10^3uL (1.8-7.7) Lymphocytes # (Auto) 0.8 x10^3/uL (1.0-4.8) Monocytes # (Auto) 0.8 x10^3/uL (0.0-1.1) Eosinophils # (Auto) 0.0 x10^3/uL (0.0-0.7) Basophils # (Auto) 0.0 x10^3/uL (0.0-0.2) BUN/Creatinine Ratio 8 (6-20) Total Bilirubin 0.9 mg/dL (0.2-1.0) Aspartate Amino Transf (AST/SGOT) 49 U/L (15-37) Alanine Aminotransferase (ALT/SGPT) 31 U/L (16-63) Alkaline Phosphatase 229 U/L (46-116) Total Protein 7.8 g/dL (6.4-8.2) Albumin 1.6 g/dL (3.4-5.0) Albumin/Globulin Ratio 0.3 (1.0-1.7) Medications Active Scripts Medications Dose Route/Sig Max Daily Dose Days Date Category No Known Medications Prior To Admisstion (Info) Each 1 Each 1X 12/25/18 Reported Impression . IMPRESSION: 1. Questionable history of tuberculosis. 2. Fever. 3. Pneumonia. Suspect gram-negative, possible gram-positive. 4. Weight loss. 5. Hyponatremia. Plan . AFB SMEAR NEGATIVE OK TO D/C ON AUGMENTIN GLEN MOLINA MD Dec 28, 2018 15:51
[2018-12-28 19:25] VITALS: BP 122/88
[2018-12-28 23:25] VITALS: BP 133/96
[2018-12-29 03:30] VITALS: BP 107/83
[2018-12-29 07:30] VITALS: BP 112/77
[2018-12-29 08:07] LABS: BASO # 0.1 x10^3/uL (0.0-0.2); BASO % 1 % (0-3); EOS % 1 % (0-3); HEMATOCRIT 36.6 % (39.0-53.0); HEMOGLOBIN 12.4 g/dL (13.0-17.5); LYMPH # 0.7 x10^3/uL (1.0-4.8); LYMPH % 12 % (24-48); MEAN CORPUSCULAR HEMOGLOBIN 31 pg (25-35); MEAN CORPUSCULAR HGB CONC 34 g/dL (31-37); MEAN CORPUSCULAR VOLUME 90 fL (79-100); MONO # 0.4 x10^3/uL (0.0-1.1); MONO % 7 % (0-9); NEUT # 4.5 x10^3uL (1.8-7.7); NEUT % 79 % (31-73); PLATELET COUNT 242 x10^3/uL (140-400); RED BLOOD COUNT 4.05 x10^6/uL (4.30-5.70); RED CELL DISTRIBUTION WIDTH 18.8 % (11.5-14.5); WHITE BLOOD COUNT 5.6 x10^3/uL (4.0-11.0)
[2018-12-29 08:29] LABS: CALCIUM 8.9 mg/dL (8.5-10.1); CREATININE 0.6 mg/dL (0.7-1.3); GFR 151.6; MAGNESIUM 1.2 mg/dL (1.8-2.4); POTASSIUM 3.8 mmol/L (3.5-5.1)
[2018-12-29] MEDS: MULTIVITAMIN with MINERAL TABLET. PO SCH (09:14)
[2018-12-29] MEDS: POTASSIUM CHLORIDE 20 MEQ TABLET.ER. PO SCH (09:14)
[2018-12-29] MEDS: THIAMINE 100 MG TABLET. PO SCH (09:14)
[2018-12-29] MEDS: FOLIC ACID 1 MG TABLET. PO SCH (09:14)
[2018-12-29] MEDS: LACTOBACILLUS RHAMNOSUS GG 1 CAPSULE. PO SCH ×2 (09:14→21:04)
[2018-12-29] MEDS: LINEZOLID 600 MG TABLET PO SCH ×2 (09:14→21:04)
[2018-12-29] MEDS: DOXYCYCLINE HYCLATE 100 MG TABLET PO SCH ×2 (09:14→21:04)
[2018-12-29] MEDS ORDERED: MAGNESIUM SULFATE 4GM 100 ML IV ONE (10:00)
[2018-12-29 11:11] VITALS: BP 101/71
[2018-12-29] MEDS: cefTRIAXone IV Push 2 GM VIAL. IVP SCH (13:15)
--- NOTE | 2018-12-29 13:23 | PDOC ---
PROGRESS NOTES Chief Complaint Chief Complaint Cough Fevers, resolved Prior history of TB EtOH withdrawal NO PTB by bronch History of Present Illness History of Present Illness NO TB by broncho-discussed with pulmonary No more fevers Patient feels well Did have weight loss 25 pounds in a short span of time Mag is low 1.2 despite displacement Plan Mag 4 g now then recheck later Wait for ID rounds Cleared by pulmonary, by mouth Augmentin on chart Vitals Vitals Vital Signs Date Time Temp Pulse Resp B/P (MAP) Pulse Ox O2 Delivery O2 Flow Rate FiO2 12/29/18 11:11 97.6 79 17 101/71 (81) 100 Room Air 97.6 Physical Exam Physical Exam CONSTITUTIONAL: He is lying in bed He appears comfortable. HEENT: Pupils are equal and reactive. Oral cavity: Pharynx has some suspect dentition. NECK: Supple. LUNGS: CTA No gross wheeze. HEART: S1 and S2. Mild tachycardic. ABDOMEN: Soft and nontender. No guarding. EXTREMITIES: No clubbing or cyanosis. No gross edema. SKIN: Warm to touch without generalized signs of rash. NEUROLOGICAL: He is nonfocal. PSYCHIATRIC: Affect was appropriate. General: Alert, Oriented X3, Cooperative, No acute distress Heart: Regular rate (SR/ST), Normal S1, Normal S2 Lungs: Crackles Abdomen: Soft Extremities: No clubbing, No cyanosis, No edema, Normal pulses Skin: No rashes, No breakdown, No significant lesion Labs LABS Laboratory Tests Test 12/28/18 15:45 12/29/18 08:00 Magnesium Level 1.4 mg/dL (1.8-2.4) 1.2 mg/dL (1.8-2.4) White Blood Count 5.6 x10^3/uL (4.0-11.0) Red Blood Count 4.05 x10^6/uL (4.30-5.70) Hemoglobin 12.4 g/dL (13.0-17.5) Hematocrit 36.6 % (39.0-53.0) Mean Corpuscular Volume 90 fL (79-100) Mean Corpuscular Hemoglobin 31 pg (25-35) Mean Corpuscular Hemoglobin Concent 34 g/dL (31-37) Red Cell Distribution Width 18.8 % (11.5-14.5) Platelet Count 242 x10^3/uL (140-400) Neutrophils (%) (Auto) 79 % (31-73) Lymphocytes (%) (Auto) 12 % (24-48) Monocytes (%) (Auto) 7 % (0-9) Eosinophils (%) (Auto) 1 % (0-3) Basophils (%) (Auto) 1 % (0-3) Neutrophils # (Auto) 4.5 x10^3uL (1.8-7.7) Lymphocytes # (Auto) 0.7 x10^3/uL (1.0-4.8) Monocytes # (Auto) 0.4 x10^3/uL (0.0-1.1) Eosinophils # (Auto) 0.0 x10^3/uL (0.0-0.7) Basophils # (Auto) 0.1 x10^3/uL (0.0-0.2) Sodium Level 131 mmol/L (136-145) Potassium Level 3.8 mmol/L (3.5-5.1) Chloride Level 96 mmol/L (98-107) Carbon Dioxide Level 26 mmol/L (21-32) Anion Gap 9 (6-14) Blood Urea Nitrogen 6 mg/dL (8-26) Creatinine 0.6 mg/dL (0.7-1.3) Estimated GFR (Cockcroft-Gault) 151.6 Glucose Level 82 mg/dL (70-99) Calcium Level 8.9 mg/dL (8.5-10.1) Review of Systems Review of Systems A 14 point ROS was completed with the following noted as positive: Other systems reviewed and negative. \CONSTITUTIONAL: No fever or chills EYES: No recent changes SKIN: No rash or itching CARDIOVASCULAR: No chest pain, syncope, palpitations, or edema RESPIRATORY: No SOB or cough GASTROINTESTINAL: No nausea, vomiting or abdominal pain NEUROLOGICAL: No headaches or weakness ENDOCRINE: No cold or heat intolerance GENITOURINARY: No urgency or frequency of urination MUSCULOSKELETAL: No back pain or joint pain LYMPHATICS: No enlarged lymph nodes PSYCHIATRIC: No anxiety or depression Assessment and Plan Assessmemt and Plan Problems Medical Problems: (1) Hyponatremia Status: Acute Comment Review of Relevant I have reviewed the following items zoe (where applicable) has been applied. Labs Laboratory Tests Test 12/28/18 15:45 12/29/18 08:00 Magnesium Level 1.4 mg/dL (1.8-2.4) 1.2 mg/dL (1.8-2.4) White Blood Count 5.6 x10^3/uL (4.0-11.0) Red Blood Count 4.05 x10^6/uL (4.30-5.70) Hemoglobin 12.4 g/dL (13.0-17.5) Hematocrit 36.6 % (39.0-53.0) Mean Corpuscular Volume 90 fL (79-100) Mean Corpuscular Hemoglobin 31 pg (25-35) Mean Corpuscular Hemoglobin Concent 34 g/dL (31-37) Red Cell Distribution Width 18.8 % (11.5-14.5) Platelet Count 242 x10^3/uL (140-400) Neutrophils (%) (Auto) 79 % (31-73) Lymphocytes (%) (Auto) 12 % (24-48) Monocytes (%) (Auto) 7 % (0-9) Eosinophils (%) (Auto) 1 % (0-3) Basophils (%) (Auto) 1 % (0-3) Neutrophils # (Auto) 4.5 x10^3uL (1.8-7.7) Lymphocytes # (Auto) 0.7 x10^3/uL (1.0-4.8) Monocytes # (Auto) 0.4 x10^3/uL (0.0-1.1) Eosinophils # (Auto) 0.0 x10^3/uL (0.0-0.7) Basophils # (Auto) 0.1 x10^3/uL (0.0-0.2) Sodium Level 131 mmol/L (136-145) Potassium Level 3.8 mmol/L (3.5-5.1) Chloride Level 96 mmol/L (98-107) Carbon Dioxide Level 26 mmol/L (21-32) Anion Gap 9 (6-14) Blood Urea Nitrogen 6 mg/dL (8-26) Creatinine 0.6 mg/dL (0.7-1.3) Estimated GFR (Cockcroft-Gault) 151.6 Glucose Level 82 mg/dL (70-99) Calcium Level 8.9 mg/dL (8.5-10.1) Laboratory Tests Test 12/28/18 15:45 6/8/19 08:00 Magnesium Level 1.4 mg/dL (1.8-2.4) 1.2 mg/dL (1.8-2.4) White Blood Count 5.6 x10^3/uL (4.0-11.0) Red Blood Count 4.05 x10^6/uL (4.30-5.70) Hemoglobin 12.4 g/dL (13.0-17.5) Hematocrit 36.6 % (39.0-53.0) Mean Corpuscular Volume 90 fL (79-100) Mean Corpuscular Hemoglobin 31 pg (25-35) Mean Corpuscular Hemoglobin Concent 34 g/dL (31-37) Red Cell Distribution Width 18.8 % (11.5-14.5) Platelet Count 242 x10^3/uL (140-400) Neutrophils (%) (Auto) 79 % (31-73) Lymphocytes (%) (Auto) 12 % (24-48) Monocytes (%) (Auto) 7 % (0-9) Eosinophils (%) (Auto) 1 % (0-3) Basophils (%) (Auto) 1 % (0-3) Neutrophils # (Auto) 4.5 x10^3uL (1.8-7.7) Lymphocytes # (Auto) 0.7 x10^3/uL (1.0-4.8) Monocytes # (Auto) 0.4 x10^3/uL (0.0-1.1) Eosinophils # (Auto) 0.0 x10^3/uL (0.0-0.7) Basophils # (Auto) 0.1 x10^3/uL (0.0-0.2) Sodium Level 131 mmol/L (136-145) Potassium Level 3.8 mmol/L (3.5-5.1) Chloride Level 96 mmol/L (98-107) Carbon Dioxide Level 26 mmol/L (21-32) Anion Gap 9 (6-14) Blood Urea Nitrogen 6 mg/dL (8-26) Creatinine 0.6 mg/dL (0.7-1.3) Estimated GFR (Cockcroft-Gault) 151.6 Glucose Level 82 mg/dL (70-99) Calcium Level 8.9 mg/dL (8.5-10.1) Microbiology 6/4/19 Blood Culture - Preliminary, Resulted NO GROWTH AFTER 3 DAYS 12/26/18 AFB Specimen Processing Tissue - Final, Resulted 12/26/18 Acid Fast Bacilli Culture, Resulted Pending 12/26/18 Gram Stain - Final, Resulted 12/26/18 Fungal Culture, Resulted Pending 12/26/18 Fungal Culture Result 1, Resulted Pending Medications Current Medications Sodium Chloride 1,000 ml @ 1,000 mls/hr 1X ONCE IV Last administered on 12/24/18at 17:29; Start 12/24/18 at 17:15; Stop 12/24/18 at 18:14; Status DC Magnesium Sulfate 50 ml @ 25 mls/hr 1X ONCE IV Last administered on 12/24/18at 19:36; Start 12/24/18 at 19:00; Stop 12/24/18 at 20:59; Status DC Ceftriaxone Sodium (Rocephin) 1 gm 1X ONCE IVP Last administered on 12/24/18at 20:17; Start 12/24/18 at 19:45; Stop 12/24/18 at 19:46; Status DC Doxycycline Hyclate 100 mg/ Dextrose 100 ml @ 50 mls/hr 1X ONCE IV Last administered on 12/24/18at 20:18; Start 12/24/18 at 19:45; Stop 12/24/18 at 21:44; Status DC Sodium Chloride 1,000 ml @ 100 mls/hr 1X ONCE IV Last administered on 12/24/18 at 20:17; Start 12/24/18 at 19:45; Stop 12/25/18 at 05:44; Status DC Magnesium Sulfate 50 ml @ 25 mls/hr 1X ONCE IV Last administered on 12/25/18at 08:39; Start 12/25/18 at 09:00; Stop 12/25/18 at 10:59; Status DC Potassium Chloride (Klor-Con) 20 meq [id number] PO Last administered on 12/29/18at 09:14; Start 12/25/18 at 12:00 Multivitamins 10 ml/Thiamine HCl 100 mg/Folic Acid 1 mg/Sodium Chloride 1,011.2 ml @ 100 mls/ hr DAILY IV Last administered on 12/28/18at 09:52; Start 12/25/18 at 12:30; Stop 12/29/18 at 01:53; Status DC Lorazepam (Ativan) 1 mg PRN Q1HR PRN PO For CIWA 8-14 Last administered on 12/26/18 19:37; Start 12/25/18 at 11:30 Lorazepam (Ativan Inj) 0.5 mg PRN Q1HR PRN IV For CIWA 8-14 Last administered on 12/27/18 11:59; Start 12/25/18 at 11:30 Diphenhydramine HCl (Benadryl) 25 mg PRN Q15MIN PRN IVP EPS symptoms 2'Haldol admin; Start 12/25/18 at 11:30 Clonidine HCl (Catapres) 0.1 mg PRN Q1HR PRN PO SBP > 180 or DBP > 100, MRX3; Start 12/25/18 at 11:30 Magnesium Sulfate 50 ml @ 25 mls/hr 1X ONCE IV Last administered on 12/25/18 12:11; Start 12/25/18 at 11:45; Stop 12/25/18 at 13:44; Status DC Ceftriaxone Sodium (Rocephin) 2 gm Q24H IVP Last administered on 12/29/18 13:15; Start 12/25/18 at 12:00 Doxycycline Hyclate (Vibra-Tab) 100 mg BID PO Last administered on 12/29/18 09:14; Start 12/25/18 at 12:00 Acetaminophen (Tylenol) 650 mg PRN Q6HRS PRN PO FEVER Last administered on 21:28; Start 12/26/18 at 06:00 Albuterol Sulfate (Ventolin Neb Soln) 2.5 mg PRN 1X PRN NEB SHORTNESS OF BREATH Last administered on 12/26/18 12:33; Start 12/26/18 at 10:00; Stop 12/26/18 at 18:00; Status DC Lidocaine HCl (Lidocaine 2% Viscous) 100 ml PRN 1X PRN MM MOUTH PAIN Last administered on 12/26/18 12:33; Start 12/26/18 at 10:00; Stop 12/26/18 at 18:00; Status DC Lidocaine HCl (Lidocaine 1% 20ml Vial) 20 ml PRN 1X PRN INJ SEE COMMENTS Last administered on 12/26/18 12:33; Start 12/26/18 at 10:00; Stop 12/26/18 at 18:00; Status DC Epinephrine HCl (Adrenalin) 1 mg PRN 1X PRN INJ SEE COMMENTS; Start 12/26/18 at 10:00; Stop 12/26/18 at 18:00; Status DC Lidocaine HCl 50 ml PRN 1X PRN MM SEE COMMENTS Last administered on 12/26/18at 12:32; Start 12/26/18 at 10:00; Stop 12/26/18 at 18:00; Status DC Epinephrine HCl (Adrenalin) 1 mg STK-MED ONCE .ROUTE ; Start 12/26/18 at 10:16; Stop 12/26/18 at 10:17; Status DC Lidocaine HCl (Lidocaine 1% 20ml Vial) 20 ml STK-MED ONCE .ROUTE ; Start 12/26/18 at 10:16; Stop 12/26/18 at 10:17; Status DC Lidocaine HCl (Lidocaine 2% Viscous) 100 ml STK-MED ONCE .ROUTE ; Start 12/26/18 at 10:16; Stop 12/26/18 at 10:17; Status DC Lidocaine HCl 50 ml STK-MED ONCE .ROUTE ; Start 12/26/18 at 10:16; Stop 12/26/18 at 10:17; Status DC Ringer's Solution 1,000 ml @ 75 mls/hr [id number] IV Last administered on 12/28/18at 06:19; Start 12/26/18 at 13:00; Stop 12/28/18 at 13:16; Status DC Propofol 20 ml @ As Directed STK-MED ONCE IV ; Start 12/26/18 at 12:51; Stop 12/26/18 at 12:52; Status DC Magnesium Sulfate 50 ml @ 25 mls/hr 1X ONCE IV Last administered on 12/26/18at 19:34; Start 12/26/18 at 18:30; Stop 12/26/18 at 20:29; Status DC Metoprolol Tartrate (Lopressor Vial) 5 mg 1X ONCE IVP Last administered on 12/26/18at 20:43; Start 12/26/18 at 20:15; Stop 12/26/18 at 20:20; Status DC Lorazepam (Ativan) 2 mg PRN Q1HR PRN PO WITHDRAWAL IRRITABILITY Last administered on 12/27/18at 05:10; Start 12/26/18 at 20:15 Linezolid (Zyvox) 600 mg BID PO Last administered on 12/29/18 09:14; Start 12/27/18 at 11:00 Magnesium Sulfate 50 ml @ 25 mls/hr 1X ONCE IV Last administered on 12/27/18at 13:16; Start 12/27/18 at 12:30; Stop 12/27/18 at 14:29; Status DC Lactobacillus Rhamnosus (Culturelle) 1 cap BID PO Last administered on 12/29/18 09:14; Start 12/27/18 at 21:00 Metoprolol Tartrate (Lopressor Vial) 5 mg PRN Q5MIN PRN IVP TACHYCARDIA; Start 12/27/18 at 15:45 Folic Acid (Folic Acid) 1 mg DAILY PO Last administered on 12/29/18 09:14; Start 12/29/18 at 09:00 Multivitamins (Thera M Plus) 1 tab DAILY PO Last administered on 12/29/18 09:14; Start 12/29/18 at 09:00 Thiamine Mononitrate (Vitamin B-1) 100 mg DAILY PO Last administered on 12/29/18 09:14; Start 12/29/18 at 09:00 Magnesium Sulfate/ Dextrose 100 ml @ 25 mls/hr 1X ONCE IV Last administered on 12/29/18 09:40; Start 12/29/18 at 10:00; Stop 12/29/18 at 13:59 Active Scripts Active Reported No Known Medications Prior To Admisstion (Info) Each 1 Each 1X Vitals/I & O Vital Sign - Last 24 Hours 12/28/18 12/28/18 12/28/18 12/28/18 15:45 19:25 20:00 23:25 Temp 97.7 98.2 97.9 97.7 98.2 97.9 Pulse 96 88 82 Resp 18 16 16 B/P (MAP) 120/85 (97) 122/88 (99) 133/96 (108) Pulse Ox 99 98 99 O2 Delivery Room Air Room Air Room Air Room Air 12/29/18 12/29/18 12/29/18 03:30 07:30 11:11 Temp 97.8 98.2 97.6 97.8 98.2 97.6 Pulse 99 86 79 Resp 16 16 17 B/P (MAP) 107/83 (91) 112/77 (89) 101/71 (81) Pulse Ox 99 98 100 O2 Delivery Room Air Room Air Room Air Intake and Output 12/28/18 12/28/18 12/29/18 15:00 23:00 07:00 Intake Total 540 ml 300 ml 450 ml Balance 540 ml 300 ml 450 ml JD BURROWS MD Dec 29, 2018 13:23
--- NOTE | 2018-12-29 14:53 | PDOC ---
Infectious Disease Note Subjective Subjective Feeling alright No fevers last 24 hours Denies SOA/pain/chills/N/V ROS ROS per HPI Vital Sign Vital Signs Vital Signs Date Time Temp Pulse Resp B/P (MAP) Pulse Ox O2 Delivery O2 Flow Rate FiO2 12/29/18 11:11 97.6 79 17 101/71 (81) 100 Room Air 97.6 Physical Exam PHYSICAL EXAM GENERAL: Sitting on the side of the bed, alert, NAD HEENT: Pupils are equal and reactive. Oral cavity: Pharynx has some suspect dentition. NECK: Supple. LUNGS: CTA No gross wheeze. HEART: S1 and S2. ABDOMEN: Soft and nontender. No guarding. EXTREMITIES: No clubbing or cyanosis. No gross edema. SKIN: Warm to touch without generalized signs of rash. NEUROLOGICAL: He is nonfocal. PIV Labs Lab Laboratory Tests Test 12/28/18 15:45 12/29/18 08:00 Magnesium Level 1.4 mg/dL (1.8-2.4) 1.2 mg/dL (1.8-2.4) White Blood Count 5.6 x10^3/uL (4.0-11.0) Red Blood Count 4.05 x10^6/uL (4.30-5.70) Hemoglobin 12.4 g/dL (13.0-17.5) Hematocrit 36.6 % (39.0-53.0) Mean Corpuscular Volume 90 fL (79-100) Mean Corpuscular Hemoglobin 31 pg (25-35) Mean Corpuscular Hemoglobin Concent 34 g/dL (31-37) Red Cell Distribution Width 18.8 % (11.5-14.5) Platelet Count 242 x10^3/uL (140-400) Neutrophils (%) (Auto) 79 % (31-73) Lymphocytes (%) (Auto) 12 % (24-48) Monocytes (%) (Auto) 7 % (0-9) Eosinophils (%) (Auto) 1 % (0-3) Basophils (%) (Auto) 1 % (0-3) Neutrophils # (Auto) 4.5 x10^3uL (1.8-7.7) Lymphocytes # (Auto) 0.7 x10^3/uL (1.0-4.8) Monocytes # (Auto) 0.4 x10^3/uL (0.0-1.1) Eosinophils # (Auto) 0.0 x10^3/uL (0.0-0.7) Basophils # (Auto) 0.1 x10^3/uL (0.0-0.2) Sodium Level 131 mmol/L (136-145) Potassium Level 3.8 mmol/L (3.5-5.1) Chloride Level 96 mmol/L (98-107) Carbon Dioxide Level 26 mmol/L (21-32) Anion Gap 9 (6-14) Blood Urea Nitrogen 6 mg/dL (8-26) Creatinine 0.6 mg/dL (0.7-1.3) Estimated GFR (Cockcroft-Gault) 151.6 Glucose Level 82 mg/dL (70-99) Calcium Level 8.9 mg/dL (8.5-10.1) Micro Microbiology 12/25/18 Blood Culture - Preliminary, Resulted NO GROWTH AFTER 3 DAYS 12/26. AFB CULTURE GRAM STAIN Final Negative Objective Assessment Fever - curve improving Pneumonia s/p Bronch 12/26 AFB neg times one Weight loss Hyponatremia Plan Plan of Care Blood cults neg so far Continue Zyvox po 12/27, doxy and Rocephin Probiotics Await bronch results from 12/26 May need ECHO F/u labs and cults Attending Co-Sign The patient was seen and interviewed as well as examined at the bedside. The chart was reviewed. The case was discussed. Agree with the plan of care. MANI JENKINS APRN Dec 29, 2018 14:53 KATE ROGERS MD Dec 29, 2018 14:58
[2018-12-29 15:37] VITALS: BP 100/71
[2018-12-29 19:59] VITALS: BP 111/81
[2018-12-29 23:25] VITALS: BP 105/75
[2018-12-30 03:49] VITALS: BP 94/58
[2018-12-30 07:30] VITALS: BP 106/66
[2018-12-30] MEDS: LINEZOLID 600 MG TABLET PO SCH (08:39)
[2018-12-30] MEDS: FOLIC ACID 1 MG TABLET. PO SCH (08:39)
[2018-12-30] MEDS: THIAMINE 100 MG TABLET. PO SCH (08:39)
[2018-12-30] MEDS: DOXYCYCLINE HYCLATE 100 MG TABLET PO SCH (08:39)
[2018-12-30] MEDS: LACTOBACILLUS RHAMNOSUS GG 1 CAPSULE. PO SCH (08:39)
[2018-12-30] MEDS: MULTIVITAMIN with MINERAL TABLET. PO SCH (08:39)
[2018-12-30] MEDS: POTASSIUM CHLORIDE 20 MEQ TABLET.ER. PO SCH (08:40)
[2018-12-30 11:12] VITALS: BP 98/55
[2018-12-30] MEDS: cefTRIAXone IV Push 2 GM VIAL. IVP SCH (12:04)
--- NOTE | 2018-12-30 13:21 | PDOC3 ---
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 Final Diagnosis Problems Medical Problems: (1) Hyponatremia Status: Acute Brief Hospital Course Allergies Allergies Coded Allergies Type Severity Reaction Last Updated Verified No Known Drug Allergies 12/24/18 No Vital Signs Vital Signs Date Time Temp Pulse Resp B/P (MAP) Pulse Ox O2 Delivery O2 Flow Rate FiO2 12/30/18 11:12 97.9 77 18 98/55 (69) 99 Room Air 97.9 Lab Results Laboratory Tests Test 12/28/18 15:45 12/29/18 08:00 12/29/18 16:46 Magnesium Level 1.4 mg/dL (1.8-2.4) 1.2 mg/dL (1.8-2.4) 2.4 mg/dL (1.8-2.4) White Blood Count 5.6 x10^3/uL (4.0-11.0) Red Blood Count 4.05 x10^6/uL (4.30-5.70) Hemoglobin 12.4 g/dL (13.0-17.5) Hematocrit 36.6 % (39.0-53.0) Mean Corpuscular Volume 90 fL (79-100) Mean Corpuscular Hemoglobin 31 pg (25-35) Mean Corpuscular Hemoglobin Concent 34 g/dL (31-37) Red Cell Distribution Width 18.8 % (11.5-14.5) Platelet Count 242 x10^3/uL (140-400) Neutrophils (%) (Auto) 79 % (31-73) Lymphocytes (%) (Auto) 12 % (24-48) Monocytes (%) (Auto) 7 % (0-9) Eosinophils (%) (Auto) 1 % (0-3) Basophils (%) (Auto) 1 % (0-3) Neutrophils # (Auto) 4.5 x10^3uL (1.8-7.7) Lymphocytes # (Auto) 0.7 x10^3/uL (1.0-4.8) Monocytes # (Auto) 0.4 x10^3/uL (0.0-1.1) Eosinophils # (Auto) 0.0 x10^3/uL (0.0-0.7) Basophils # (Auto) 0.1 x10^3/uL (0.0-0.2) Sodium Level 131 mmol/L (136-145) Potassium Level 3.8 mmol/L (3.5-5.1) Chloride Level 96 mmol/L (98-107) Carbon Dioxide Level 26 mmol/L (21-32) Anion Gap 9 (6-14) Blood Urea Nitrogen 6 mg/dL (8-26) Creatinine 0.6 mg/dL (0.7-1.3) Estimated GFR (Cockcroft-Gault) 151.6 Glucose Level 82 mg/dL (70-99) Calcium Level 8.9 mg/dL (8.5-10.1) Laboratory Tests Test 12/29/18 16:46 Magnesium Level 2.4 mg/dL (1.8-2.4) Brief Hospital Course Mr. Rhodes is a 38 old [sex] who presented with [ ] Mr. 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 Bronchoscopy done, AFB negative. Comanagement pulmonary ID. Okay for home today by mouth Augmentin 2 Notes today, patient seen and examined Procedures performed bronchoscopy by pulmonary Consults performed pulmonary/ID Discharge Information Condition at Discharge: Improved, Stable Follow Up: Weeks (4 weeks pulmo or ID) Disposition/Orders: D/C to Home Scheduled Info (No Known Medications Prior To Admisstion) Each, 1 EACH 1X for no meds reported, (Reported) Entered as Reported by: SUSHMA GIPSON on 12/25/1832 Last Action: New Order on 12/25/1832 by JD RICHARD MD Dec 30, 2018 13:21
--- NOTE | 2018-12-30 13:34 | PDOC ---
Infectious Disease Note Subjective Subjective No fevers last 48 hours Denies SOA/pain/chills/N/V Vital Sign Vital Signs Vital Signs Date Time Temp Pulse Resp B/P (MAP) Pulse Ox O2 Delivery O2 Flow Rate FiO2 12/30/18 11:12 97.9 77 18 98/55 (69) 99 Room Air 97.9 Physical Exam PHYSICAL EXAM GENERAL: Sitting on the side of the bed, alert, NAD HEENT: Pupils are equal and reactive. Oral cavity: Pharynx has some suspect dentition. NECK: Supple. LUNGS: CTA No gross wheeze. HEART: S1 and S2. ABDOMEN: Soft and nontender. No guarding. EXTREMITIES: No clubbing or cyanosis. No gross edema. SKIN: Warm to touch without generalized signs of rash. NEUROLOGICAL: He is nonfocal. PIV Labs Lab Laboratory Tests Test 12/29/18 16:46 Magnesium Level 2.4 mg/dL (1.8-2.4) Micro 12/25/18 Blood Culture - Preliminary, Resulted NO GROWTH AFTER 4 DAYS 12/26. BRONCH RES 1 Final Routine respiratory diamond 12/26. AFB CULTURE GRAM STAIN Final Negative FUNGAL CULTURE,OTHER PENDING Objective Assessment Fever - curve improving Pneumonia s/p Bronch 12/26 AFB neg times one so far Weight loss Hyponatremia Plan Plan of Care Blood cults neg so far Continue Zyvox po 12/27, doxy and Rocephin Probiotics Await final bronch results from 12/26 May need ECHO Attending Co-Sign The patient was seen and interviewed as well as examined at the bedside. The chart was reviewed. The case was discussed. Agree with the plan of care. ok to d/c f/u cultures, f/u with us in 3-4 wks MANI JENKINS APRN Dec 30, 2018 13:34 KATE ROGERS MD Dec 30, 2018 14:50
[2018-12-30 15:35] VITALS: BP 102/72
--- NOTE | 2018-12-30 16:09 | NUR ---
Discharge Note: CARLA PARADA [address] Discharge instructions and discharge home medications reviewed with Patient and a copy given. All questions have been answered and understanding verbalized. The following instructions and handouts were given: Patient given education regarding TB and Augmentin. Discontinued lines and drains: IV removed per protocol. Patient discharged home, picked up by parents. Addendum: 12/30/18 at 1611 by TOBY HAMILTON RN Patient given follow up instructions and information fro following up at [facility].
== END 2018-12-30 16:15 | disposition home or self-care (01) | DRG 871 ==
LOC: ER 15:50 → 2 NORTH 20:05 → 6 SOUTH 12-25 16:30
PROVIDERS: ADMIT Internal Medicine; ATTEND Internal Medicine
PROC: 0B9F8ZX Drainage of Right Lower Lung Lobe, Via Natural or Artificial Opening Endoscopic, Diagnostic (ICD-10-PCS; 2018-12-26)
PROC: 0B9J8ZX Drainage of Left Lower Lung Lobe, Via Natural or Artificial Opening Endoscopic, Diagnostic (ICD-10-PCS; principal; 2018-12-26 13:00)
DX: A41.9 Sepsis, unspecified organism (principal); J18.1 Lobar pneumonia, unspecified organism; R17 Unspecified jaundice; E87.1 Hypo-osmolality and hyponatremia; F10.239 Alcohol dependence with withdrawal, unspecified; D64.9 Anemia, unspecified; E03.9 Hypothyroidism, unspecified; E83.42 Hypomagnesemia; E87.6 Hypokalemia; K59.00 Constipation, unspecified; Z86.11 Personal history of tuberculosis; Z79.899 Other long term (current) drug therapy
CPT/HCPCS: 31622; 36415; 71046; 80048; 80053; 80307; 81001; 82553; 83735; 84443; 84484; 85025; 86713; 87040; 87070; 87102; 87116; 87205; 88112; 88312; 93005; 94640; 96361; 96365; 96366; 96367; 96375; G0480; J0696; J2060; J2704; J3475; J3490; J7030; J7120; J7613; 99285-25